=== PATIENT | female | born 1995 | race Caucasian/White ===

== ENCOUNTER 2016-06-22 09:42 | Emergency (ER) | payer OTHER ==
[~2016-06-22] VITALS: Ht 165.1 cm; Wt 42.2 kg
[~2016-06-22 09:42] MED LIST: AMBIEN (MONOGRAP5 MG PO; FLOMAX(MONOGRA0.4 MG PO; MIRALAX119 GM PO; MOTRIN 600 MG600 MG PO; NEURONTIN300 M1 PO; PERCOCET 325 MG1 TA2 PO; TRAMADOL HCL50 M1 PO; XANAX1 M1 PO
[2016-06-22 09:46] VITALS: BP 107/73
--- NOTE | 2016-06-22 10:25 | ED GI/GU/ABDOMINAL COMPLAINT ---
History of Present Illness General Chief Complaint: Abdominal Pain/Flank Pain Stated Complaint: LEFT FLANK PAIN Source: patient, old records Exam Limitations: hx limited as pt repeatedly expressed she did not want to be in the ED due to anxiety Vital Signs & Intake/Output Vital Signs & Intake/Output Vital Signs Date Time Temp Pulse Resp B/P Pulse O2 O2 Flow FiO2 Ox Delivery Rate 06/22 0946 97.0 99 20 107/73 97 Room Air Allergies Coded Allergies: No Known Allergies (02/04/16) Reconcile Medications Alprazolam (Xanax) 0.5 MG TABLET 1 TAB PO BIDP PRN ANXIETY (Reported) Gabapentin (Neurontin) 300 MG CAPSULE 1 CAP PO TID PRN pain Polyethylene Glycol 3350 (Miralax) 17 GRAM/DOSE POWDER 17 GM PO DAILY constipation mix with water, juice, soda, coffee or tea, use until stools soft and regular Tramadol HCl 50 MG TABLET 1 TAB PO BIDP PRN PAIN Triage Note: RIGHT FLANK PAIN SINCE YESTERDAY MORNING, PT STATES HER URINE STREAM IS WEAK AND IT FEELS LIKE IT'S BLOCKED. PT HAS HX OF KIDNEY STONES Triage Nurses Notes Reviewed? yes ? n Is pt currently ? No Onset: Abrupt Duration: hour(s):, continues in ED Quality/Severity: severe Prior Abdominal Problems: similar symptoms (due to renal colic) HPI: Patient presents for evaluation of right flank pain that began early yesterday morning. It is a sharp stabbing pain that seems to feel better with hunching forward. It gets worse with movement. Radiates to the right lower abdomen. Past History Travel History Traveled to [place] past 21 day No Medical History Any Pertinent Medical History? 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 No Review of Systems Review of Systems Constitutional: Reports: no symptoms. EENTM: Reports: no symptoms. Respiratory: Reports: no symptoms. Cardiovascular: Reports: no symptoms. GI: Reports: no symptoms. Genitourinary: Reports: no symptoms. Musculoskeletal: Reports: back pain. Skin: Reports: no symptoms. Neurological/Psychological: Reports: no symptoms. Hematologic/Endocrine: Reports: no symptoms. Immunologic/Allergic: Reports: no symptoms. All Other Systems: Reviewed and Negative Physical Exam Physical Exam Gastrointestinal: see below Comments: gen: wn, wd, no acute resp distress head: nc/at eyes: normal inspection ears: normal inspection nose: normal inspection throat/mouth: moist mucosa neck: supple, from, no goiter heart: rrr, no mrg lungs: cta bilaterally with normal air entry chest: nt abd: soft, nd, normal bowel sounds, mild right sided tenderness back: normal range of motion, right cvat ext: normal range of motion, no cyanosis, clubbing or edema skin: warm and dry circulatory: normal radial pulses neuro: cn 2-12 grossly intact, speech clear psych: calm, cooperative, no apparent delusion, hallucinations or pressured speech Core Measures ACS in differential dx? No Severe Sepsis Present: No Septic Shock Present: No Progress Differential Diagnosis: biliary colic, cholecystitis, hepatitis, kidney stone, UTI/pyelo Plan of Care: Orders Procedure Date/time Status URINE 06/22 1025 Active URINALYSIS 06/22 1025 Active CBC WITHOUT DIFFERENTIAL 06/22 1025 Complete BASIC METABOLIC PANEL 06/[address] ABD & PELVIS W/O IV CONTRAS 06/22 1025 Active Laboratory Tests 06/22/16 1036: Anion Gap 9, Estimated GFR > 60, BUN/Creatinine Ratio 18.3, Glucose 145 H, Calcium 9.6, CBC w Diff NO MAN DIFF REQ, RBC 4.27, MCV 83.6, MCH 27.8, RDW 14.7 H, MPV 9.5, Gran % 84.2 H, Lymphocytes % 10.9 L, Monocytes % 3.1, Eosinophils % 1.6, Basophils % 0.2, Absolute Granulocytes 8.3 H, Absolute Lymphocytes 1.1 L, Absolute Monocytes 0.3, Absolute Eosinophils 0.2, Absolute Basophils 0, PUBS MCHC 33.3 Initial ED EKG: none Comments: 06/22/2016 10:54:26 AM (abruptly left the emergency department. I tracked her down in the emergency department parking lot. Her father came to the emergency department at her request and she was found at his car. She states she can no longer stay in the emergency department due to severe anxiety. I explained to her the need for an evaluation to rule out considerations such as renal colic ( ureteral obstruction, infected kidney stone, sepsis, ), biliary disease, liver disease. He is alert and oriented to person place time and current events. I feel she is capable medical decision making. She repeatedly declined medication for anxiety and refused to return to the emergency department. She will be discharged AGAINST MEDICAL ADVICE. 06/22/2016 11:42:13 AM patient returned to the emergency department and was medicated with Ativan in an attempt to settle her anxiety and to allow a full evaluation here in the emergency department. However the patient just left the emergency department again. Her father is aware. I've asked that he bring her back or convince her to return if there is any worsening of her condition. Departure Departure Disposition: LEFT AGAINST MEDICAL ADVICE Condition: Stable Clinical Impression Primary Impression: Flank pain Referrals: FLORENTINO MCKEON,ZENA Gong (PCP/Family) Additional Instructions: Your leaving AGAINST MEDICAL ADVICE. Your evaluation is not complete at this time. You could potentially have a life-threatening medical condition that has gone untreated. Please follow-up with your primary care doctor as soon as possible for reevaluation and return to the emergency department immediately if any concerns or sudden worsening. Departure Forms: Customer Survey General Discharge Information
[2016-06-22 10:47] LABS: ABSOLUTE BASOPHIL COUNT 0 /CUMM (0.0-0.2); ABSOLUTE EOSINOPHIL COUNT 0.2 /CUMM (0.0-0.7); ABSOLUTE GRANULOCYTE CT 8.3 /CUMM (1.4-6.5); ABSOLUTE LYMPH COUNT 1.1 /CUMM (1.2-3.4); ABSOLUTE MONOCYTE COUNT 0.3 /CUMM (0.10-0.60); BASOPHIL % 0.2 % (0.0-2.0); EOSINOPHIL % 1.6 % (0-5); HEMATOCRIT 35.7 % (37-47); MEAN CORPUSCULAR HGB 27.8 PG (27.0-31.0); MEAN CORPUSCULAR HGB CONC 33.3 G/DL (33.0-37.0); MEAN CORPUSCULAR VOLUME 83.6 FL (81.0-99.0); MEAN PLATELET VOLUME 9.5 FL (7.4-10.4); PLATELET COUNT 248 /CUMM (130-400); RBC DISTRIBUTION WIDTH 14.7 % (11.5-14.5); RED BLOOD CELL CT 4.27 /CUMM (4.20-5.40); WHITE BLOOD CELL COUNT 9.8 /CUMM (4.8-10.8)
[2016-06-22 11:18] LABS: GRANULOCYTE % 84.2 % (42.2-75.2)
== END 2016-06-22 12:35 | disposition left against medical advice (07) ==
LOC: ERH 09:42
PROVIDERS: Emergency Medicine
DX: R10.9 Unspecified abdominal pain (principal)
CPT/HCPCS: 81025; 96374; 96375; J1885; J2405

== ENCOUNTER 2016-09-20 13:57 | Emergency (ER) | payer OTHER ==
[~2016-09-20] VITALS: Ht 152.4 cm; Wt 40.8 kg
--- NOTE | 2016-09-20 14:07 | ED PSYCHIATRIC COMPLAINT ---
History of Present Illness General Chief Complaint: ETOH/Drug Related Complaint Stated Complaint: "PER EMS ?OVERDOSE" Source: patient, EMS Exam Limitations: no limitations Vital Signs & Intake/Output Vital Signs & Intake/Output Vital Signs Date Time Temp Pulse Resp B/P B/P Pulse O2 O2 Flow FiO2 Mean Ox Delivery Rate 09/20 1410 97.8 132 18 142/82 99 Room Air ED Intake and Output 09/21 0000 09/20 1200 Intake Total 20 Output Total Balance 20 Intake, Oral 20 Patient 89 lb 15.99 oz Weight Weight Reported by Patient Measurement Method Allergies Coded Allergies: simethicone (Intermediate, RASH 09/20/16) nut - unspecified (Mild, MOUTH ITCHES 09/20/16) lactose (UNKNOWN 09/20/16) Reconcile Medications Alprazolam (Xanax) 1 MG TABLET 1 TAB PO BIDP PRN ANXIETY (Reported) Buprenorphine HCl/Naloxone HCl (Suboxone 8 MG-2 MG Sl Film) 8 MG-2 MG FILM 1 STR SL DAILY UNKNOWN (Reported) Doxepin HCl 50 MG CAPSULE 2 CAP PO QPM SLEEP (Reported) Gabapentin (Neurontin) 300 MG CAPSULE 1 CAP PO TID PRN pain Triage Nurses Notes Reviewed? yes Onset: Abrupt Duration: better Timing: single episode today Severity: severe Severity Numbers: 10 HPI: Patient's 21-year-old female with past medical history of of polysubstance abuse ,ANXIETY who presents emergency room and which EMS states that they received a phone call in which the patient was noted to be IN HER EMPLOYMENT [facility] for an extended period of time in which the employees broke down the doorway in which patient was unresponsive. EMS arrived and noted patient to be concerned of intoxication of opiates where she was mildly incoherent where they did not treat patient with any Narcan in which patient was brought in by ambulance for evaluation. EMS states that there was needle's around the patient and fresh track fall Patient states that she took multiple doses today of oxycodone and she used IV heroin over the weekend Patient currently is receiving outpatient therapy for her polysubstance abuse Patient denies any alcohol use because of a previous DUI. Denies any homicidal or suicidal ideation. Patient was offered detoxification however declines (NEWTON RAMOS) Past History Travel History Traveled to [place] past 21 day No Medical History Any Pertinent Medical History? 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 No (NEWTON RAMOS) Review of Systems Review of Systems Constitutional: Reports: no symptoms. EENTM: Reports: no symptoms. Respiratory: Reports: no symptoms. Cardiovascular: Reports: no symptoms. GI: Reports: no symptoms. Genitourinary: Reports: no symptoms. Musculoskeletal: Reports: no symptoms. Skin: Reports: no symptoms. Neurological/Psychological: Reports: see HPI. Hematologic/Endocrine: Reports: no symptoms. Immunologic/Allergic: Reports: no symptoms. All Other Systems: Reviewed and Negative (NEWTON RAMOS) Physical Exam Physical Exam General Appearance: no apparent distress, alert Neurological/Psychiatric: no motor/sensory deficits Comments: Well-developed well-nourished person in no acute distress HEENT: Normal EENT exam, pinpoint pupils extraocular motion intact, no nystagmus. Pupils equally round and reactive to light and accommodation. Nose is atraumatic. External auditory canal and Tympanic membranes clear. Pharynx normal. No swelling or edema. Neck: Supple, no lymphadenopathy, normal range of motion without pain or tenderness Back: Nontender, no CVA tenderness. Cardiovascular: Regular rate and rhythms no murmurs rubs or gallops, normal JVP Respiratory: Chest nontender. No respiratory distress.breath sounds clear to auscultation bilaterally Abdomen: Soft, nontender nondistended, no appreciable organomegaly. Normal bowel sounds. No ascites Extremity: No edema, no calf tenderness to palpation, normal and equal pulses. Neuro: Alert oriented x3, motor sensory normal, cranial nerves II through XII grossly intact. Skin: No appreciable rash on exposed skin, skin is warm and dry. Psych: Mood and affect is normal, memory and judgment is normal. SAD PERSONS Done? patient not suicidal (NEWTON RAMOS) Progress Differential Diagnosis: drug intoxication, drug overdose, drug withdrawal, electrolyte abnormality, encephalitis, hypoglycemia, hypothyroidism, IC hem/mass /tumor, meningitis Plan of Care: Orders Procedure Date/time Status Patient Safety Monitor 09/20 1416 Complete HUMAN BETA HCG SCREEN 09/20 1402 Complete ETHANOL 09/20 140 Complete COMPREHENSIVE METABOLIC PANEL 09/20 140 Complete CBC WITHOUT DIFFERENTIAL 09/20 1401 Complete Laboratory Tests 09/20/16 1427: Anion Gap 12, Estimated GFR > 60, BUN/Creatinine Ratio 10.0, Glucose 134 H, Calcium 9.2, Total Bilirubin 0.3, AST 28, ALT 24, Alkaline Phosphatase 84, Total Protein 7.3, Albumin 4.2, Globulin 3.1, Albumin/Globulin Ratio 1.4, Total Beta HCG NEGATIVE, CBC w Diff NO MAN DIFF REQ, RBC 4.47, MCV 87.3, MCH 28.3, RDW 15.8 H, MPV 8.1, Gran % 64.0, Lymphocytes % 31.4, Monocytes % 2.3, Eosinophils % 2.2 , Basophils % 0.1, Absolute Granulocytes 9.3 H, Absolute Lymphocytes 4.6 H, Absolute Monocytes 0.3, Absolute Eosinophils 0.3, Absolute Basophils 0, PUBS MCHC 32.4 L, Serum Alcohol < 10.0 09/20/16 140: Methadone Screen Cancelled, Barbiturate Screen Cancelled, Ur Phencyclidine Scrn Cancelled, Amphetamines Screen Cancelled, U Benzodiazepines Scrn Cancelled, Urine Cocaine Screen Cancelled, Urine Cannabis Screen Cancelled Patient denies any suicide or homicidal ideation No concerns of auditory or visual hallucinations Denies any inpatient detoxification request when offered FATHER IS AT BEDSIDE Patient's blood work was unremarkable patient has negative and no alcohol on board. Recent was in the emergency room for 3 hours noted to have no respiratory distress or respiratory concerns. Patient tried to obtain urine drug screen however she was unable to urinate and which due to have past medical history the patient most likely overdosed from opiates where she did not receive Narcan prior to arrival and patient has been improved from her symptoms. I discussed with patient and stressed the importance to not use this medication as detrimental effects can be considered when using this drug. Patient states that her father will most likely be having patient admitted to inpatient detox facility patient has follow-up appointment with [facility] Sunday Upon discharge patient looks well no apparent distress and will comply or discharge instructions and had no questions (MACKENZIE ELLIS,NEWTON) Departure Departure Disposition: HOME OR SELF CARE Condition: Stable Clinical Impression Primary Impression: Opiate overdose Referrals: FLORENTINO MCKEON,ZENA Gong (PCP/Family) Additional Instructions: As discussed please discontinue the use of opiates. Follow-up tomorrow WITH IOP. If symptoms worsen return to emergency room Departure Forms: Customer Survey General Discharge Information (NEWTON RAMOS) PA/DIRECTOR OF RETAIL MERCHANDISING Co-Sign Statement Statement: ED Attending supervision documentation- [] I saw and evaluated the patient. I have also reviewed all the pertinent lab results and diagnostic results. I agree with the findings and the plan of care as documented in the PA's/DIRECTOR OF RETAIL MERCHANDISING's documentation. [X] I have reviewed the ED Record and agree with the PA's/DIRECTOR OF RETAIL MERCHANDISING's documentation. [] Additions or exceptions (if any) to the PAs/DIRECTOR OF RETAIL MERCHANDISING's note and plan are summarized below: [] (KATHLEEN MCKEON,NILSON)
[2016-09-20 14:10] VITALS: BP 142/82
[2016-09-20 14:35] LABS: ABSOLUTE BASOPHIL COUNT 0 /CUMM (0.0-0.2); ABSOLUTE EOSINOPHIL COUNT 0.3 /CUMM (0.0-0.7); ABSOLUTE GRANULOCYTE CT 9.3 /CUMM (1.4-6.5); ABSOLUTE LYMPH COUNT 4.6 /CUMM (1.2-3.4); ABSOLUTE MONOCYTE COUNT 0.3 /CUMM (0.10-0.60); BASOPHIL % 0.1 % (0.0-2.0); EOSINOPHIL % 2.2 % (0-5); MEAN CORPUSCULAR HGB 28.3 PG (27.0-31.0); MEAN CORPUSCULAR HGB CONC 32.4 G/DL (33.0-37.0); MEAN CORPUSCULAR VOLUME 87.3 FL (81.0-99.0); MEAN PLATELET VOLUME 8.1 FL (7.4-10.4); PLATELET COUNT 296 /CUMM (130-400); RBC DISTRIBUTION WIDTH 15.8 % (11.5-14.5); RED BLOOD CELL CT 4.47 /CUMM (4.20-5.40); WHITE BLOOD CELL COUNT 14.5 /CUMM (4.8-10.8)
[2016-09-20] MEDS ORDERED: SUBOXONE 8 MG-1 EACH SL (14:54)
[2016-09-20] MEDS ORDERED: DOXEPIN HCL50 MG PO (14:54)
== END 2016-09-20 17:45 ==
LOC: ERH 13:57
PROVIDERS: Physician Assistant
DX: T40.601A Poisoning by unspecified narcotics, accidental (unintentional), initial encounter (principal)
CPT/HCPCS: 80307; G0480

== ENCOUNTER 2016-09-21 13:48 | Inpatient (IN) | payer OTHER ==
[~2016-09-21] VITALS: Ht 165.1 cm; Wt 40.8 kg
[~2016-09-21 13:48] MED LIST changes: +DOXEPIN HCL50 MG PO; +SUBOXONE 8 MG-1 EACH SL
--- NOTE | 2016-09-21 13:56 | ED PSYCHIATRIC COMPLAINT ---
History of Present Illness General Chief Complaint: ETOH/Drug Related Complaint Stated Complaint: BIBA UNRESPONSIVE Source: patient Exam Limitations: no limitations Vital Signs & Intake/Output Vital Signs & Intake/Output Vital Signs Date Time Temp Pulse Resp B/P B/P Pulse O2 O2 Flow FiO2 Mean Ox Delivery Rate 09/21 2308 97.4 109 18 117/74 09/21 2216 97.4 109 117/74 09/21 1930 97.6 103 18 106/77 95 09/21 1609 97.7 130 20 161/86 09/21 1608 97.7 130 20 161/86 94 Room Air 09/21 1401 Room Air Room Air 09/21 1356 98.4 116 15 124/92 99 Room Air Room Air ED Intake and Output 09/22 0000 09/21 1200 Intake Total 0 Output Total Balance 0 Intake, Oral 0 Patient 89 lb 15.99 oz Weight Weight Reported by Patient Measurement Method Allergies Coded Allergies: simethicone (Intermediate, RASH 09/21/16) nut - unspecified (Mild, MOUTH ITCHES 09/21/16) lactose (UNKNOWN 09/21/16) Reconcile Medications Alprazolam (Xanax) 1 MG TABLET 1 TAB PO BIDP PRN ANXIETY (Reported) Buprenorphine HCl/Naloxone HCl (Suboxone 8 MG-2 MG Sl Film) 8 MG-2 MG FILM 1 STR SL DAILY UNKNOWN (Reported) Doxepin HCl 50 MG CAPSULE 2 CAP PO QPM SLEEP (Reported) Gabapentin (Neurontin) 300 MG CAPSULE 1 CAP PO TID PRN pain Triage Nurses Notes Reviewed? yes Onset: Abrupt Duration: better Timing: single episode today Severity: severe Severity Numbers: 10 HPI: Patient is a 21-year-old female with past medical history of polysubstance abuse who presents emergency room for concerns of overdose on heroin today in which it is noted through EMS that mother had found the patient on the floor unconscious and which the mother administered 2 mg of Narcan spray patient immediately came to and was conscious alert and oriented. Patient was evaluated yesterday for a similar event by me in which patient was noted to be at work found unconscious due to significant opiate use however no Narcan was administered. Patient states that she used because she had symptoms of "dope sickness" where she found 1 bag of heroin where she used IV today. Patient states the parents are still trying to get patient into inpatient detoxification program. Patient denies any homicidal or suicidal ideation denies any alcohol use. Patient currently states that she has denies abdominal pain due to her concerns of constipation however bowel movement was noted today. Denies any current nausea vomiting patient can tolerate by mouth (NEWTON RAMOS) Past History Travel History Traveled to [place] past 21 day No Medical History Any Pertinent Medical History? 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 No (NEWTON RAMOS) Review of Systems Review of Systems Constitutional: Reports: no symptoms. EENTM: Reports: no symptoms. Respiratory: Reports: no symptoms. Cardiovascular: Reports: no symptoms. GI: Reports: see HPI, abdominal pain. Genitourinary: Reports: no symptoms. Musculoskeletal: Reports: no symptoms. Skin: Reports: no symptoms. Neurological/Psychological: Reports: see HPI. Hematologic/Endocrine: Reports: no symptoms. Immunologic/Allergic: Reports: no symptoms. All Other Systems: Reviewed and Negative (NEWTON RAMOS) Physical Exam Physical Exam General Appearance: no apparent distress, alert, comfortable Neurological/Psychiatric: no motor/sensory deficits, awake, calm Comments: Well-developed well-nourished person in no acute distress HEENT: Normal EENT exam, extraocular motion intact, no nystagmus. Pupils equally round and reactive to light and accommodation. Nose is atraumatic. External auditory canal and Tympanic membranes clear. Pharynx normal. No swelling or edema. Neck: Supple, no lymphadenopathy, normal range of motion without pain or tenderness Back: Nontender, no CVA tenderness. Cardiovascular: Regular rate and rhythms no murmurs rubs or gallops, normal JVP Respiratory: Chest nontender. No respiratory distress.breath sounds clear to auscultation bilaterally Abdomen: Soft, nontender nondistended, no appreciable organomegaly. Normal bowel sounds. No ascites Extremity: No edema, no calf tenderness to palpation, normal and equal pulses. Neuro: Alert oriented x3, motor sensory normal, cranial nerves II through XII grossly intact. Skin: No appreciable rash on exposed skin, skin is warm and dry. Psych: Mood and affect is normal, memory and judgment is normal. SAD PERSONS Done? patient not suicidal (MACKENZIE ELLIS,NEWTON) Progress Differential Diagnosis: drug intoxication, drug overdose, drug withdrawal, electrolyte abnormality, encephalitis, hypoglycemia, hypothyroidism, IC hem/mass /tumor, meningitis Plan of Care: Orders Procedure Date/time Status Regular Diet 09/22 B Active Diet Message 09/22 UNK Active Inpt Psych Teach/Educate 09/21 2316 Active Inpt Psych Auricular Acupunctu 09/21 2316 Active NUTRITIONAL CONSULT 09/21 2253 Active Teach/Educate 09/21 2242 Active Pain Treatment and Response 09/21 2242 Active Nutritional Intake, Monitor 09/21 2242 Active Patient Care Conference 09/21 2242 Active Patient Data - inpatient psych 09/21 2202 Active Admit to inpatient psych 09/21 2202 Active Admit to inpatient psych 09/22 2019 Active Continuous Observation Monitor 09/21 1456 Complete ED CRISIS PSYCH CONSULT 09/21 1456 Active THYROID STIMULATING HORMONE 09/21 1418 Complete THYROXINE 09/21 1418 Complete FREE T4 09/21 1418 Complete FOLIC ACID 09/21 1418 Complete VITAMIN B12 09/21 1418 Complete URINE DRUG SCREEN FOR ER ONLY 09/21 1355 Complete HUMAN BETA HCG SCREEN 09/21 1355 Complete ETHANOL 09/21 1355 Complete COMPREHENSIVE METABOLIC PANEL 09/21 1355 Complete CBC WITHOUT DIFFERENTIAL 09/21 1355 Complete EKG 09/21 1355 Active Lab Add-on Test 09/21 UNK Active Vital Signs 09/21 UNK Active Nursing Misc 09/21 UNK Active Activity/Ambulation 09/21 UNK Active Current Medications Sig/Nathalie Start time Last Medication Dose Stop Time Status Admin Clonidine 0.1 MG Q6P PRN 09/21 2199 AC 09/21 (Catapres) 2308 Ibuprofen 600 MG Q4P PRN 09/21 2199 AC 09/21 (Motrin) 230 Ondansetron HCl 4 MG Q6P PRN 09/21 2199 AC (Zofran) Laboratory Tests 09/21/16 1712: Urine Opiates Screen > 4000.00 H, Methadone Screen 51, Barbiturate Screen < 60, Ur Phencyclidine Scrn < 6.00, Amphetamines Screen < 100, U Benzodiazepines Scrn 227 H, Urine Cocaine Screen 98, Urine Cannabis Screen 12.80 06/01/17 1418: Anion Gap 9, Estimated GFR > 60, BUN/Creatinine Ratio 18.3, Glucose 124 H, Calcium 8.8, Total Bilirubin 0.5, AST 32, ALT 20, Alkaline Phosphatase 76, Total Protein 6.8, Albumin 3.8, Globulin 3.0, Albumin/Globulin Ratio 1.3, Vitamin B12 725, Folate 17.2, TSH 0.333, Free T4 1.15, Thyroxine (T4) 9.7, Total Beta HCG NEGATIVE, CBC w Diff NO MAN DIFF REQ, RBC 4.33, MCV 85.4, MCH 28.4, RDW 15.4 H, MPV 8.1, Gran % 86.6 H, Lymphocytes % 6.4 L, Monocytes % 7.0, Eosinophils % 0, Basophils % 0 L, Absolute Granulocytes 13.4 H, Absolute Lymphocytes 1.0 L, Absolute Monocytes 1.1 H, Absolute Eosinophils 0, Absolute Basophils 0, PUBS MCHC 33.2, Serum Alcohol < 10.0 Patient has considerable concern of 2 consecutive days of opiate overdose Patient on initial examination was in no apparent distress however patient while in the emergency room started complaining of generalized abdominal pain where patient has consideration of constipation. Abdominal x-ray was unremarkable for obstruction. Patient was administered medications for nausea pain and BOWEL promotion while in the emergency room. Patient was ordered a monitor for concerns of elopement risk and opiate overdose and patient was evaluated by crisis management who discussed with me the patient will be admitted to Inpatient Psychiatry for concerns of anxiety. Discussed disposition plan with parents who agree and has no questions (MACKENZIE ELLIS,NEWTON) Diagnostic Imaging: Viewed by Me: Radiology Read. Radiology Impression: SEE COMMENTS Comments: PATIENT: LIN CERRATO PRESENT AGE: 21 PATIENT ACCOUNT NO: [id number] : 94 LOCATION: [facility] ORDERING PHYSICIAN: NEWTON ELLIS SERVICE DATE: 09/21/16-7626 EXAM TYPE: RAD - [id number] VIEW EXAMINATION: XR ABDOMEN CLINICAL INDICATION: Heroin induced constipation. Rule out small bowel obstruction. COMPARISON: CT abdomen pelvis dated 02/04/2016 and it abdominal radiograph dated 02/13/2016 TECHNIQUE: AP view of the abdomen. FINDINGS: There is a nondilated bowel gas pattern. A moderate volume of stool is present throughout the ascending and transverse colon. No gross evidence of pneumoperitoneum. Lung bases are clear. No pathologic calcification. A navel piercing is present. Osseous structures are unremarkable. IMPRESSION: Moderate stool volume. No obstruction. (NEWTON RAMOS) Departure Departure Disposition: STILL A PATIENT Condition: Critical Clinical Impression Primary Impression: Anxiety Secondary Impressions: Opiate dependence Referrals: FLORENTINO MCKEON,ZENA Gong (PCP/Family) Additional Instructions: DISCUSSED, ONCE YOU ARE DISCHARGED FROM THE ER, PLEASE GO TO [facility] TO BE ADMITTED FOR YOUR SYMPTOMS IF SYMPTOMS WORSEN, RETURN TO THE ER. Departure Forms: Customer Survey General Discharge Information Psych Admission Note Psychiatric Admission: I have seen and evaluated LIN CERRATO. I have also reviewed all the pertinent lab results and diagnostic results. LIN CERRATO will be admitted to our inpatient Psychiatric unit for treatment and care. (NEWTON RAMOS) PA/HEARING SCREENER Co-Sign Statement Statement: ED Attending supervision documentation- [] I saw and evaluated the patient. I have also reviewed all the pertinent lab results and diagnostic results. I agree with the findings and the plan of care as documented in the PA's/HEARING SCREENER's documentation. [x] I have reviewed the ED Record and agree with the PA's/HEARING SCREENER's documentation. [] Additions or exceptions (if any) to the PAs/HEARING SCREENER's note and plan are summarized below: [] (HEMANT SINGH DO) Critical Care Note Critical Care Note Critical Care Time: 30-74 min (NEWTON RAMOS)
--- NOTE | 2016-09-21 14:01 | NUR ---
PT BIBA FROM HOME S/P OVERDOSE ON 1 BAG OF HEROIN TODAY. PT HAS HISTORY OF IV DRUG ABUSE, SEEN HERE YESTERDAY FOR OVERDOSE WELL. PT DENIES SI/HI, DOES NOT WANT DETOX "I'M CURRENTLY WAITING TO GET INTO A DETOX FACILITY RIGHT NOW." PT CALM AND COOPERATIVE, A/O X 3 ON ARRIVAL. PT'S MOTHER FOUND PT UNRESPONSIVE AND GAVE 2MG INTRANASAL NARCAN APPROX 1250.
--- NOTE | 2016-09-21 14:01 | NUR ---
PER CALEB MANN, PT DOES NOT NEED TO BE CHANGED INTO SCRUBS.
[2016-09-21 14:33] LABS: ABSOLUTE BASOPHIL COUNT 0 /CUMM (0.0-0.2); ABSOLUTE EOSINOPHIL COUNT 0 /CUMM (0.0-0.7); ABSOLUTE GRANULOCYTE CT 13.4 /CUMM (1.4-6.5); ABSOLUTE MONOCYTE COUNT 1.1 /CUMM (0.10-0.60); BASOPHIL % 0 % (0.0-2.0); EOSINOPHIL % 0 % (0-5); MEAN CORPUSCULAR HGB CONC 33.2 G/DL (33.0-37.0); MEAN PLATELET VOLUME 8.1 FL (7.4-10.4); PLATELET COUNT 283 /CUMM (130-400); RBC DISTRIBUTION WIDTH 15.4 % (11.5-14.5); RED BLOOD CELL CT 4.33 /CUMM (4.20-5.40); WHITE BLOOD CELL COUNT 15.4 /CUMM (4.8-10.8)
[2016-09-21 14:41] LABS: MEAN CORPUSCULAR HGB 28.4 PG (27.0-31.0); MEAN CORPUSCULAR VOLUME 85.4 FL (81.0-99.0)
--- NOTE | 2016-09-21 14:50 | NUR ---
PROVIDER AT BEDSIDE TO SPEAK WITH PARENTS ABOUT POC.
[2016-09-21 14:54] LABS: GRANULOCYTE % 86.6 % (42.2-75.2)
--- NOTE | 2016-09-21 15:01 | RADIOLOGY REPORT ---
EXAMINATION: XR ABDOMEN CLINICAL INDICATION: Heroin induced constipation. Rule out small bowel obstruction. COMPARISON: CT abdomen pelvis dated 02/04/2016 and it abdominal radiograph dated 02/13/2016 TECHNIQUE: AP view of the abdomen. FINDINGS: There is a nondilated bowel gas pattern. A moderate volume of stool is present throughout the ascending and transverse colon. No gross evidence of pneumoperitoneum. Lung bases are clear. No pathologic calcification. A navel piercing is present. Osseous structures are unremarkable. IMPRESSION: Moderate stool volume. No obstruction.
--- NOTE | 2016-09-21 15:01 | NUR ---
PT REFUSING IBUPROFEN, PHARM CALLED FOR GOLYTELY AND CATAPRES.
--- NOTE | 2016-09-21 15:04 | NUR ---
PT SCREAMING ABOUT STOMACH PAIN. PT OFFERED IBUPROFEN BUT REFUSED FOR THE PAIN. SECURITY CALLED FOR WANDING.
--- NOTE | 2016-09-21 15:15 | NUR ---
PT AGITATED AND COMPLAINING THAT HER STOMACH HURTS, STILL REFUSING TO TAKE IBUPROFEN. PT WANDED BY SECURITY AND CHANGED INTO SCRUBS PER POLICY. PT'S MOTHER AND FATHER GIVEN ALL VALUABLES AND BELONGINGS TO TAKE HOME. PT VERY UPSET AND AGITATED THAT SHE IS FORCED TO TAKE HER SOCKS OFF, PT INFORMED THAT IT'S POLICY THAT SHE NEEDS TO TAKE HER SOCKS OFF. PT TOOK SOCKS OFF BUT IS REQUESTING A NEW NURSE. CHARGE AWARE AND PT MOVED TO ROOM 13, REPORT GIVEN TO MARCO ANTONIO CANALES.
--- NOTE | 2016-09-21 15:24 | NUR ---
PT SCREAMING AND CRYING OUT IN PAIN STATING SHE HAS GI ISSUES AND WANTS NARCOTIC MEDS FOR PAIN. EDUCATED MULTIPLE TIMES BY MULTIPLE EMPLOYEES THAT NARCOTICS WILL NOT BE GIVEN DUE TO NATURE OF VISIT TO ED TODAY AND THAT OPIATE USE AFTER OVERDOSE CAN BE LIFE THREATENING
--- NOTE | 2016-09-21 16:10 | NUR ---
PT MEDICATED PER EMAR. GOLYTELY GIVEN TO PT WITH CUP, INSTRUCTED TO DRINK TOLERATED UP TO 8OZ/10MIN PER PHARMACY. FATHER AT BEDSIDE ASSISTING PT WITH DRINKING. PO FLUIDS PROVIDED. PT VERY ANXIOUS, C/O GI SYMPTOMS AND ANXIETY. PT AWARE OF NEED FOR URINE SAMPLE, CUP AND LABELS GIVEN TO SITTERS. PT ADVISED THAT IF SHE IS UNABLE TO PROVIDE A SAMPLE, A STRAIGHT CATH WILL LIKELY BE ORDERED, VERBALIZED UNDERSTANDING. SITTERS IN ATTENDANCE.
--- NOTE | 2016-09-21 16:33 | NUR ---
PT RESTING ON BED, HAS HAD 2 GLASSES OF GOLYTELTY PER PARENTS AND NOW STATING SHE IS TOO NAUSEATED TO CONTINUE AT THIS TIME. PARENTS AT BEDSIDE VOICING NO CONCERNS. SITTERS AWARE TO REMIND PT TO COLLECT URINE WHEN POSSIBLE.
--- NOTE | 2016-09-21 17:19 | NUR ---
PER PA, PT AGREED TO STRAIGHT CATH FOR URINE. ONE PASS ATTEMPTED, PT C/O SEVERE DISCOMFORT AND ADAMENTLY REFUSED TO ALLOW PROCEDURE TO CONTINUE STATING SHE WOULD PROVIDE A CLEAN CATCH SAMPLE. PT WENT TO RESTROOM WITH ASSIST FROM MOTHER (AT PT REQUEST), URINE TRIO SENT AT THIS TIME. PT NOW STATES SHE WILL ACCEPT MOTRIN FOR HER BACK PAIN.
--- NOTE | 2016-09-21 17:27 | NUR ---
MEDICATED WITH MOTRIN, ICE PACKS PROVIDED, MOTHER AT BEDSIDE. CRISIS AWARE THAT URINE HAS BEEN SENT. PT RESTING WITH EYES CLOSED ON BED. GOLYTLY REMAINS AT BEDSIDE, PT IS AWARE OF PURPOSE OF MED AND INSTRUCTIONS AND DECLINES TO DRINK MORE AT THIS TIME.
--- NOTE | 2016-09-21 19:54 | ED PSYCH CRISIS CONSULTATION ---
See Addendum Crisis Consult Basic Assessment Date of Consult: 09/21/16 Responsible Person/Accompanied By: parents called police Insurance Authorization: Insurance #1: Insurance name: HEATHER IZAGUIRRE Phone number: Policy number: [id number] Group number: Authorization number: ED Provider: Patient's ED Provider: NEWTON RAMOS Primary Care Physician: Patient's PCP: ZENA GOOD MD PCP's Current Psychiatrist: PCP prescribes her xanax Chief Complaint: ETOH/Drug Related Complaint Patient's Quote: "I took some heroin and my Mom found me" Present Illness: Pt is a 21 year old female, arrived to ER due to overdose on heroin, pt reportedly used 1 bag IV and her Mother found her laying on the floor unresponsive. Pt denies this was a suicide attempt. Pt has limited insight, her demeanor is childlike, she is curled up in a ball, and avoids eye contact, she is soft spoken. Pt denies previous si attempts or self harm, pt was seen here yesterday for a similar presentation after she passed out at work in their bathroom and required the door be busted down, and was evluated inthe ER, she was discharged with a plan to find a detox bed, she was not referred to crisis. Pt reports she started using heroin at age 17 and has been using it on and off for 4 years. She has been to [facility] for detox and rehab. She was also seen in our IOP in May 2016, she reports she relapsed in June, using 4 to 5 bags daily. She is prescribed xanax her Mother holds onto it and gives it to her twice daily as needed, her PCP prescribes this medicine to her for "anxiety". Pt is also diagnosed with anorexia, and has been to [facility] for specific eating disorder behaviors. Pt poor judgement, in regards to the seriousness and risk involved. She reports poor sleep, and is constipated. Patient's Address: [address] [place] [address] Other Phone Number: Who Do You Live With? Family Family/Informants Interviewed: family are concerned for her saftey, they are afraid she is going to kill herself, by means of overdose. Allergies - Coded Allergies: simethicone (Intermediate, RASH 09/21/16) nut - unspecified (Mild, MOUTH ITCHES 09/21/16) lactose (UNKNOWN 09/21/16) Current Medications - Scheduled Medications Buprenorphine HCl/Naloxone HCl (Suboxone 8 MG-2 MG Sl Film) 8 MG-2 MG FILM 1 STR SL DAILY UNKNOWN #14 (Reported) Entered as Reported by LYNSEY HERNANDEZ on 09/20/16 1454 Doxepin HCl 50 MG CAPSULE 2 CAP PO QPM SLEEP #30 (Reported) Entered as Reported by LYNSEY HERNANDEZ on 09/20/16 1454 Scheduled PRN Medications Alprazolam (Xanax) 1 MG TABLET 1 TAB PO BIDP PRN ANXIETY (Reported) Entered as Reported by LYNSEY HERNANDEZ on 06/18/15 1249 Gabapentin (Neurontin) 300 MG CAPSULE 1 CAP PO TID PRN pain #50 CAP Prescribed by PEE MOTT MD on 02/13/16 Laboratory Results: Laboratory Tests 09/21/16 1712: Urine Opiates Screen > 4000.00 H, Methadone Screen 51, Barbiturate Screen < 60, Ur Phencyclidine Scrn < 6.00, Amphetamines Screen < 100, U Benzodiazepines Scrn 227 H, Urine Cocaine Screen 98, Urine Cannabis Screen 12.80 09/21/16 1418: Anion Gap 9, Estimated GFR > 60, BUN/Creatinine Ratio 18.3, Glucose 124 H, Calcium 8.8, Total Bilirubin 0.5, AST 32, ALT 20, Alkaline Phosphatase 76, Total Protein 6.8, Albumin 3.8, Globulin 3.0, Albumin/Globulin Ratio 1.3, Total Beta HCG NEGATIVE, CBC w Diff NO MAN DIFF REQ, RBC 4.33, MCV 85.4, MCH 28.4, RDW 15.4 H, MPV 8.1, Gran % 86.6 H, Lymphocytes % 6.4 L, Monocytes % 7.0, Eosinophils % 0, Basophils % 0 L, Absolute Granulocytes 13.4 H, Absolute Lymphocytes 1.0 L, Absolute Monocytes 1.1 H, Absolute Eosinophils 0, Absolute Basophils 0, PUBS MCHC 33.2, Serum Alcohol < 10.0 Past History Past Medical History Neurological: NONE, restless leg syndrome EENT: NONE Cardiovascular: NONE Respiratory: NONE Gastrointestinal: NONE Hepatic: NONE Renal: nephrolithiasis Musculoskeletal: NONE Psychiatric: anxiety, IV DRUG ABUSE (HEROIN) ANOREXIA Endocrine: NONE Blood Disorders: NONE Cancer(s): 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 Past Surgical History Surgical History: non-contributory Psychosocial History Strengths/Capabilities: parents are supportive, employable Psychiatric Treatment History Psych Treatment Psychiatric Treatment Yes Inpatient Treatment No Outpatient Treatment Yes Location of Treatment [facility] dual Reason for Treatment dual diagnosed Dates of Treatment may 2016 Response to Treatment unknown Diagnosis by History: Anxiety D/O anorexia opiate use d/o Substance Use/Abuse History Drug Use/Abuse 1 Substances Used/Abused Yes Substance Used/Abused Heroin First Use 17 Last Used today How much used/taken 5 bags How often daily For how long 4 years Route of use IV Drug Use/Abuse 2 Substances Used/Abused Yes Substance Used/Abused Benzodiazepines First Use 20 Last Used today How much used/taken 1mg bid How often daily For how long few years Route of use oral Substance Abuse Treatment Substance Abuse Treatment Past Substance Abuse TX Yes Inpatient Treatment Yes Outpatient Treatment Yes Location of Treatment [facility] Reason for Treatment opiates Dates of Treatment in past few years Response to Treatment unknown Current Mental Status Mental Status Orientation: Person, Place, Situation Affect: Anxious, Depressed, Flat, Inappropriate Speech: Mumbled, Soft Neuro-vegetative: Appetite Decreased, Concentration Poor, Helpless, Loss of Interest, Sleep Disturbance Appearance Appearance- Dress/Hygiene: ungroomed, dishelved Behaviors Thought Process: Irrational Thought Content: Somatic Memory: WNL Insight: Poor SI/HI Risk Assessment Past Suicidal Ideation/Attempts No Current Suicidal Ideation/Att No Past Homicidal Ideation/Att: No Current Homicidal Ideation/Attempts No Degree of Intent: Self Destructive/No Danger To: Self Gravely Disabled: Lack of Insight, Poor Judgment Risk Factors: age (under 24/over 65), high anxiety/distress, SA/MH hospitalized, substance abuse, poor impulse control Lethality Ratin PTSD Checklist PTSD Done? patient declined ED Management Sitter: Yes Restraints: No DSM5/PS Stressors/Medical Prob Diagnosis' (DSM 5, Stressors, Medical): Anxiety D/O F41.1 Opiate Use D/O F11.20 Severe Anorexia Current GAF: 27 Departure Disposition Psych Medical Clearance Date: 09/21/16 Medically Cleared at: 1800 Time Started: 1800 Time Ended: 193 Psychiatrist Consulted: Kevin MCKEON,Edward Date Disposition Established: 09/21/16 Time Disposition Established: 1951 Plan for Disposition - Modality: Inpatient Psychiatry Facility: [facility] Follow-up Appt Date: 09/21/16 Follow-Up Appt Time: 1952 Rationale for Disposition: Pt is exhibiting lack of insigth and judgement and is at risk of self harm. Dr. dutta recommedns inpatient admission. Type of IP Admission: Voluntary Referrals FLORENTINO MCKEON,ZENA Gong (PCP/Family)
--- NOTE | 2016-09-21 19:59 | IP CRISIS DIAG ASSESS PSYCH ---
Diagnostic Assessment Basic Assessment Insurance Authorization: Insurance #1: Insurance name: HEATHER IZAGUIRRE Phone number: Policy number: [id number] Group number: Authorization number: Primary Care Physician: Patient's PCP: ZENA GOOD MD PCP's Patient's Quote: "I took some heroin and my Mom found me" Present Illness: Pt is a 21 year old female, arrived to ER due to overdose on heroin, pt reportedly used 1 bag IV and her Mother found her laying on the floor unresponsive. Pt denies this was a suicide attempt. Pt has limited insight, her demeanor is childlike, she is curled up in a ball, and avoids eye contact, she is soft spoken. Pt denies previous si attempts or self harm, pt was seen here yesterday for a similar presentation after she passed out at work in their bathroom and required the door be busted down, and was evluated inthe ER, she was discharged with a plan to find a detox bed, she was not referred to crisis. Pt reports she started using heroin at age 17 and has been using it on and off for 4 years. She has been to [facility] for detox and rehab. She was also seen in our IOP in May 2016, she reports she relapsed in June, using 4 to 5 bags daily. She is prescribed xanax her Mother holds onto it and gives it to her twice daily as needed, her PCP prescribes this medicine to her for "anxiety". Pt is also diagnosed with anorexia, and has been to [place] for specific eating disorder behaviors. Pt poor judgement, in regards to the seriousness and risk involved. She reports poor sleep, and is constipated. Patient's Address: [address] [place] [address] Other Phone Number: Who Do You Live With? Family Feel Safe Where You Live? Yes Feel Safe in Your Relationship Yes Marital Status: single Do You Have Children? No Primary Language? Maltese Language(s) Spoken At Home: Maltese Family/Informants Interviewed: family are concerned for her saftey, they are afraid she is going to kill herself, by means of overdose. Allergies - Coded Allergies: simethicone (Intermediate, RASH 09/21/16) nut - unspecified (Mild, MOUTH ITCHES 09/21/16) lactose (UNKNOWN 09/21/16) Current Medications - Scheduled Medications Buprenorphine HCl/Naloxone HCl (Suboxone 8 MG-2 MG Sl Film) 8 MG-2 MG FILM 1 STR SL DAILY UNKNOWN #14 (Reported) Entered as Reported by LYNSEY HERNANDEZ on 09/20/16 1454 Doxepin HCl 50 MG CAPSULE 2 CAP PO QPM SLEEP #30 (Reported) Entered as Reported by LYNSEY HERNANDEZ on 09/20/16 1454 Scheduled PRN Medications Alprazolam (Xanax) 1 MG TABLET 1 TAB PO BIDP PRN ANXIETY (Reported) Entered as Reported by LYNSEY HERNANDEZ on 06/18/15 1249 Gabapentin (Neurontin) 300 MG CAPSULE 1 CAP PO TID PRN pain #50 CAP Prescribed by PEE MOTT MD on 02/13/16 Lab Results: Laboratory Tests 09/21/16 1712: Urine Opiates Screen > 4000.00 H, Methadone Screen 51, Barbiturate Screen < 60, Ur Phencyclidine Scrn < 6.00, Amphetamines Screen < 100, U Benzodiazepines Scrn 227 H, Urine Cocaine Screen 98, Urine Cannabis Screen 12.80 09/21/16 1418: Anion Gap 9, Estimated GFR > 60, BUN/Creatinine Ratio 18.3, Glucose 124 H, Calcium 8.8, Total Bilirubin 0.5, AST 32, ALT 20, Alkaline Phosphatase 76, Total Protein 6.8, Albumin 3.8, Globulin 3.0, Albumin/Globulin Ratio 1.3, Total Beta HCG NEGATIVE, CBC w Diff NO MAN DIFF REQ, RBC 4.33, MCV 85.4, MCH 28.4, RDW 15.4 H, MPV 8.1, Gran % 86.6 H, Lymphocytes % 6.4 L, Monocytes % 7.0, Eosinophils % 0, Basophils % 0 L, Absolute Granulocytes 13.4 H, Absolute Lymphocytes 1.0 L, Absolute Monocytes 1.1 H, Absolute Eosinophils 0, Absolute Basophils 0, PUBS MCHC 33.2, Serum Alcohol < 10.0 Toxicology Screen Completed? Yes Results: positive Symptoms of Use: Pt overdosed twice in the past 2 days Past History Past Medical History Medical History: anorexia Past Surgical History Surgical History SX FOR KIDNEY STONES DENTAL EXTRACTION Abuse/Trauma History Trauma History/Current Trauma: Denies Legal History Current Legal Status: alcohol/drug legal problm Have you ever been arrested? 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 Psychosocial History Strengths/Capabilities: parents are supportive, employable Psychiatric Treatment History Psych Treatment Psychiatric Treatment Yes Inpatient Treatment No Outpatient Treatment Yes Location of Treatment [facility] dual Reason for Treatment dual diagnosed Dates of Treatment may 2016 Response to Treatment unknown Diagnosis by History: Anxiety D/O anorexia opiate use d/o Risk Factors: age (under 24/over 65), high anxiety/distress, SA/MH hospitalized, substance abuse, poor impulse control Substance Use/Abuse History Drug Use/Abuse minimum 12mo Hx Substances Used/Abused Yes Substance Used/Abused Benzodiazepines First Use 20 Last Used today How much used/taken 1mg bid How often daily For how long few years Route of use oral Substance Abuse Treatment Substance Abuse Treatment Past Substance Abuse [place] Yes Inpatient Treatment Yes Outpatient Treatment Yes Location of Treatment [facility] Reason for Treatment opiates Dates of Treatment in past few years Response to Treatment unknown Sexual History Sexually Active No Sexual Orientation Heterosexual Use of Protection No Education History Highest Level of Education: some college Preferred Learning Style: visual, auditory, experiential Current Mental Status Mental Status Orientation: Person, Place, Situation Affect: Anxious, Depressed, Flat, Inappropriate Speech: Mumbled, Soft Neuro-vegetative: Appetite Decreased, Concentration Poor, Helpless, Loss of Interest, Sleep Disturbance Appearance Appearance- Dress/Hygiene: ungroomed, dishelved Behaviors Thought Process: Irrational Thought Content: Somatic Memory: WNL Insight: Poor SI/HI Risk Assessment - Minimum 6mo History- Past Suicidal Ideation/Attempts No Current Suicidal Ideation/Att No Past Homicidal Ideation/Att: No Current Homicidal Ideation/Attempts No Degree of Intent: Self Destructive/No Danger To: Self Gravely Disabled: Lack of Insight, Poor Judgment Risk Factors: age (under 24/over 65), high anxiety/distress, SA/MH hospitalized, substance abuse, poor impulse control Lethality Ratin Needs/Init TX Plan/Goals: Engage in inpatient milieu, remain safe, med eval, individual, group and family therapy. Address anxiety,soberiety and create recovery plan AUDIT-C Questionnaire: AUDIT-C Questionnaire: Response Value ETOH use in the past year Never 0 # drinks typical/day Doesn't Drink 0 6 or > drinks per occasion Never 0 Total 0 DSM5/PS Stressors/Medical Prob Diagnosis' (DSM 5, Stressors, Medical): Anxiety D/O F41.1 Opiate Use D/O F11.20 Severe Anorexia Current GAF: 27
--- NOTE | 2016-09-21 21:02 | NUR ---
REPORT CALLED TO [facility] ON [facility], AWAITING REGISTRATION TO PUT ADMISSION THROUGH THEN MAY BOOK TRANSPORT PER RN.
--- NOTE | 2016-09-21 21:19 | NUR ---
PEER FOUND IN PT'S CHART AT THIS TIME STATING "NEEDS HELP FOR HER DRUG PROBLEM." ORIGINAL IN LOCKBOX, 2 COPIES IN CHART TO BE SENT TO CPS. PER CRISIS AND PT/MOM PT IS A VOLUNTARY ADMISSION TO [facility]PS FOR ANXIETY.
[2016-09-21 22:16] VITALS: BP 117/74
--- NOTE | 2016-09-22 00:31 | NUR ---
PT IS A 21 YR OLD SINGLE FEMALE VOLUNTARILY ADMITTED FOR ANXIETY, DEPRESSION, OPIATE ABUSE, AND BENZODIAZEPINE ABUSE. SHE IS ANOREXIC. PT DENIES ABUSE HX. SHE HAD OD'D ON HEROIN TWICE IN THE LAST 2 DAYS. SHE IS A VEGAN. THE PATIENT DENIES SI CURRENTLY. SHE SOUNDS CHILD-LIKE ON ADMIT. THE PT DENIES CRAVING OPIATES AND BENZODIAZEPINES CURRENTLY. THE PATIENT ALSO DENIES ANY ANXIETY OR DEPRESSION. SHE HAS BEEN IN 6 REHABS IN THE PAST 4 YEARS- THIS IS HER FIRST PSYCHIATRIC HOSPITALIZATION. THE PATIENT APPEARS TO HAVE LITTLE INSIGHT WITH LIMITED MOTIVATION FOR TREATMENT AND ABSTINENCE. SHE STATES SHE HAS INSOMNIA. THE PATIENT STATES SHE IS ALLERGIC TO CHERRIES, BANANAS, NUTS, AND APPLES. SHE SAYS SHE IS LACTOSE INTOLERANT.
--- NOTE | 2016-09-22 06:54 | NUR ---
PT IS A 21 YR OLD SINGLE FEMALE VOLUNTARILY ADMITTED FOR ANXIETY, DEPRESSION, OPIATE ABUSE, ADN BENZODIAZEPINE ABUSE. SHE APPARENTLY OD'D YESTERDAY AND THE DAY BEFORE. SHE IS ANOREXIC. THE PATIENT DENIES ANY ABUSE HISTORY. SHE DENIES SI. THE PT DENIES CRAVING OPIATES AND BENZODIAZEPINES CURRENTLY. SHE ALSO DENIES ANXIETY AND DEPRESSION. THIS IS HER FIRST PSYCH ADMISSION, BUT SHE HAS BEEN TO 6 REHABS IN 4 YEARS. THE PATIENT APPEARS TO HAVE LIMITED INSIGHT WITH LIMITED MOTIVATION FOR TREATMENT AND ABSTINENCE. SHE STATES SHE IS AN INSOMNIAC, BUT APPEARED TO SLEEP WELL. THE PATIENT STATES SHE IS ALLERGIC TO NUTS, CHERRIES, APPLES, AND BANANAS. SHE IS LACTOSE INTOLERANT. THE PATIENT IS A VEGAN.
[2016-09-22 08:29] VITALS: BP 114/64
[2016-09-22 09:29] VITALS: BP 103/57
--- NOTE | 2016-09-22 10:35 | SOCIAL WORKER SOCIAL HX PSYCH ---
Social History Basic Assessment Insurance Authorization: Insurance #1: Insurance name: HEATHER Hall Evoz [facility] Phone number: Policy number: [id number] Group number: Authorization number: Curr Source of Income/Entitlements: employment Primary Care Physician: Patient's PCP: ZENA GOOD MD. PCP's Present Problem: Met with Pati to complete social history. She was walking slowly, bent over holding ehr stomach and stated she is constipated. She was complaining of not having enough medication for her withdrawal symptoms. She was guarded, irritable and stated how she wanted to "transfer to another detox program." She stated she "dislikes [place]." She wanted to sign a 3 day paper, offered her the paper after we met and advised her to review with her clinician. She denied SI/HI, no psychosis. She reports using 4-5 bags of Heroin daily and if she has the money a bundle daily. She was vague abotu her drug use and for how long - stated she was using while she attended the [place] IOP program - "I would just stop using a few days prior to the program, that is why my urines were always clean." Pati then stated she disliked the IOP because "they accused me of being high>' Pointed out to her that she was using, per her report. Pati appears to have very poor insight and judgement. She is focused on leaving inapatient at this point. INformed Pati that she will be working with her clinician and the prescriber on her goals for treatment. Despite her complaints and wanting to leave [facility], she stated she wants to go to a rehab, like [facility]. Informed her her clinician will assist in this process. Primary Language? Kazakh Language(s) Spoken At Home: Kazakh Living Situation Other Living Arrangement: relative's/guardian's rose Feel Safe Where You Are Living Yes Feel Safe in Relationships? Yes Allergies - Coded Allergies: simethicone (Intermediate, RASH 09/21/16) nut - unspecified (Mild, MOUTH ITCHES 09/21/16) apple (UNKNOWN 09/22/16) lactose (UNKNOWN 09/21/16) Uncoded Allergies: BANANAS (UNKNOWN 09/22/16) CHERRIES, (UNKNOWN 09/22/16) Current Medications - Scheduled Medications Buprenorphine HCl/Naloxone HCl (Suboxone 8 MG-2 MG Sl Film) 8 MG-2 MG FILM 1 STR SL DAILY UNKNOWN #14 (Reported) Entered as Reported by LYNSEY HERNANDEZ on 09/20/16 1454 Last Taken: At an unknown date and time Doxepin HCl 50 MG CAPSULE 2 CAP PO QPM SLEEP #30 (Reported) Entered as Reported by LYNSEY HERNANDEZ on 09/20/16 1454 Last Taken: At an unknown date and time Scheduled PRN Medications Alprazolam (Xanax) 1 MG TABLET 1 TAB PO BIDP PRN ANXIETY (Reported) Entered as Reported by LYNSEY HERNANDEZ on 06/18/15 1249 Last Taken: At an unknown date and time Gabapentin (Neurontin) 300 MG CAPSULE 1 CAP PO TID PRN pain #50 CAP Prescribed by PEE MOTT MD on 02/13/16 Last Taken: At an unknown date and time Past History Past Medical History Neurological: NONE, restless leg syndrome EENT: NONE Cardiovascular: NONE Respiratory: NONE Gastrointestinal: NONE Hepatic: NONE Renal: nephrolithiasis Musculoskeletal: NONE Psychiatric: anxiety, IV DRUG ABUSE (HEROIN) ANOREXIA Endocrine: NONE Blood Disorders: NONE Cancer(s): NONE 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 Primary Childhood Caretakers: father, mother Family Life During Childhood: "Fine" DCF Involvement? No Relationship w/Mother: Pt. stated she doesn't know her Mother's age. She stated she gets along "Fine" with her Mother. Relationship w/Father: Uncertain of her Father's age. Gets along "fine" with her Father. Per clinical from IOP intake: her Father is a scale model maker at [employer] in [place], and he owns a [employer] business. Any Sibling(s)? Yes Sibling's Gender(s)/Age(s): male Sibling 1: Relationship w/Sibling(s): Has Twin brother - gets along "fine" Relationship w/Friends: denies having any friends. Family Psych/Sub Abuse/Add Hx: Denied Number of Pregnancies: 0 Number of Miscarriages: 0 Number of Abortions: 0 Other Comments: PT guarded, irritated. Abuse/Trauma History Trauma History/Current Trauma: Denies Legal History Legal Guardian/Address/Phone: DUI - 09/2015 - drug related; next court 11/2016, 08/2017. No probation. Current Legal Status: alcohol/drug legal problm Pending Court Dates: see above. Have you ever been arrested Yes Number of Arrests: 2 Hx of Juvenile Legal Charges? No Hx of Adult Legal Charges? Yes If Yes: drug and alcohol related - DUI List/Date Most Recent Lgl Chgs: DUI Action Installer n/a Psychosocial History Primary Support System: father, mother, sibling(s) Strengths/Capabilities: parents are supportive, employable Weaknesses: drug use, chronic relapse Physical Limitations (Interventions): PT walking bent over, reports stomach pain. Last Physical: doesn't remember History of Seizures? No History of Blackouts? No ADL Limitations: PT did not want to discuss [place]/Social/Peer Relations Reports None Meaningful Activities: PT. states NONE Childhood Advent: No, "I don't care." Current Rastafari Affiliation: "No, I don't care." Is Spirituality Important to You? NO Patient's Ethnicity: (Nepali), [place] Timorese Cultural/Ethnic Issues: Pt did not report Are There Developmental Issues? No Milestones Achieved: WNL Psychiatric Treatment History Psych Treatment Inpatient Treatment No Outpatient Treatment Yes Location of Treatment [facility] dual Reason for Treatment dual diagnosed Dates of Treatment may 2016 Response to Treatment unknown Current Gre Instructor: Unknown Treatment of Prior Episodes: Poor, Pt stated she was using Heroin during [facility] program. Chronic relapse. Diagnosis: Anxiety D/O anorexia opiate use d/o Psychodynamic Issues: Poor insight and judgement, chronic relapse, per clinical from [facility], anorexia, family issues Risk Factors: age (under 24/over 65), high anxiety/distress, SA/MH hospitalized, substance abuse, poor impulse control Substance Use/Abuse History Drug Use/Abuse 1 Substance Used/Abused Benzodiazepines First Use 20 Last Used today How much used/taken 1mg bid How often daily For how long few years Route of use oral Drug Use/Abuse 2 Substance Used/Abused Heroin First Use 17yo Last Used day of admit How much used/taken 4-5 bags daily or 1 bundle daily How often daily or when had money For how long 4 years Have Had Periods of Sobriety? Yes Explain: intermittent (PT guarded) Relapse History? Yes Explain: PT states she was prescribed Benzos Have You Ever Attended AA? Yes Do You Attend AA Currently? No Do You Have a Sponsor? No Other Community Resources Used: PT hates AA/NA "It's a cult." Symptoms of Use: Pt overdosed twice in the past 2 days Substance Abuse Treatment Substance Abuse Treatment Inpatient Treatment Yes Outpatient Treatment Yes Location of Treatment [facility] Reason for Treatment opiates Dates of Treatment in past few years Response to Treatment unknown Sexual History Sexually Active No Sexual Orientation Heterosexual Use of Protection No Education History Highest Level of Education: some college Highest Grade Completed: 1 semester of college, HS College Degree/Major: N/A Preferred Learning Style: visual, auditory, experiential HX of Learning Difficulties: None reported Barriers to Learning: None reported Special Communication Needs: None reported Employment History 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 of Jobs in Last 5 Years: 2 Attendance: Normal Performance: Good Comments: PT works 2 jobs (20-35hrs per week) at [employer] and History Have You Been in The ? No Current Mental Status Problem List: 1. Opiate overdose Mental Status Orientation: Person, Place, Situation Affect: Anxious, Angry, Depressed, Flat, Inappropriate Speech: WNL Neuro-vegetative: Appetite Decreased, Concentration Poor, Energy Decreased, Helpless, Loss of Interest, Sleep Disturbance Appearance Appearance- Dress/Hygiene: ungroomed, dishelved Behaviors Thought Process: Irrational Thought Content: Somatic Memory: WNL Insight: Poor SI/HI Risk Assessment Past Suicidal Ideation/Attempts No Current Suicidal Ideation/Att No Past Homicidal Ideation/Att: No Current Homicidal Ideation/Attempts No Degree of Intent: Self Destructive/No Danger To: Self Gravely Disabled: Lack of Insight, Poor Judgment Risk Factors: Age (under 24 or over 65), High Anxiety/Distress, SA/MH Hospitalization(s), Lack of concern outcome, Poor impulse control, Substance Abuse Lethality Ratin - Conclusion and Recommendations for treatment - and discharge planning
[2016-09-22 12:13] VITALS: BP 93/52
--- NOTE | 2016-09-22 13:55 | NUR ---
Consult received, thank you for consult. Per chart, pt with "anorexia" per mother. Visited with pt this afternoon, food allergies clarified. Pt with allergy to banana, apples, cherries. Nut allergy per pt but almond milk okay. Pt reports she is vegetarian but doesn't eat eggs and is lactose intolerant and doesn't use dairy so she identifies as vegan but does eat gelatin. Discussed menu choices for pt with foods she eats at home. Menu set up for dining services to provide meals. Pt is very cachetic, hx of of "anorexia", RD did not discuss wt/wt issues. Alb WNL at 3.8, Folic acid WNL 17.2, B12 WNL 725. BM 09/17/16, constipation.
--- NOTE | 2016-09-22 13:58 | NUR ---
PT VISIBLE SOME OF THE DAY IN THE [place]. SHE ATTENDED A FEW GROUPS TODAY, AND INTERACTS WITH [facility]. IN THE [place] PT WAS IRRITABLE AT FIRST THAT SHE HAD TO BE HERE, AND THAT SHE WAS NOT GIVEN ANY MEDICATIONS FOR HER DETOX. PT ATTITUDE DID GET BETTER THE DAY PROGRESSED. SHE DID JOIN HER PEERS FOR LUNCH AND PICKED AT HER FOOD. PT DENIES THOUGHTS OF HURTING HERSELF WHEN ASKED.
--- NOTE | 2016-09-22 15:13 | SOCIAL WORKER PROG NOTE PSYCH ---
Social Work Progress Note Progress Note Met with Pati to complete social history. She was walking slowly, bent over holding ehr stomach and stated she is constipated. She was complaining of not having enough medication for her withdrawal symptoms. She was guarded, irritable and stated how she wanted to "transfer to another detox program." She stated she "dislikes [facility]." She wanted to sign a 3 day paper, offered her the paper after we met and advised her to review with her clinician. She denied SI/HI, no psychosis. She reports using 4-5 bags of Heroin daily and if she has the money a bundle daily. She was vague abotu her drug use and for how long - stated she was using while she attended the [facility] IOP program - "I would just stop using a few days prior to the program, that is why my urines were always clean." Pati then stated she disliked the IOP because "they accused me of being high>' Pointed out to her that she was using, per her report. Pati appears to have very poor insight and judgement. She is focused on leaving inapatient at this point. INformed Pati that she will be working with her clinician and the prescriber on her goals for treatment. Despite her complaints and wanting to leave [facility], she stated she wants to go to a rehab, like [facility]. Informed her her clinician will assist in this process.
[2016-09-22 16:34] VITALS: BP 101/61
--- NOTE | 2016-09-22 17:01 | CPS MD/APRN INITIAL ASSE PSYCH ---
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 Father is rig welder at "[employer]" in [place] and also operates a [employer] business. She has a twin brother living in [place] and apparently "doing well." Chief Complaint: "I took some heroin and my mom found me." Reaction to Hospitalization: ambivalent at first but signed in as a voluntary admission History of Present Illness Onset of Illness: Patient was referred to the E.D. 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 The first time, on 09/20/2016, she was brought in by EMS directly from her workplace; she had been found unresponsive in the store bathroom and drug paraphanalia (needles, heroin) were found in the trash can. She acknowledged only have snorted Percocet due to increasing anxiety (and, presumably difficulty continuing to work in that state of mind). She was evaluated by PA student/PA only (no Crisis consult requested at that time) and discharged to her father. In less than24 hours, she was brought back into the E.D. via ambulance from home following being found in the bathroom there unresponsive by her mother who administered 2mg of intranasal Narcan. While still in the E.D., patient complained bitterly of symptoms of "dope sickness" for which she pleaded/ demanded (but did not receive) opioid drugs at that time but was eventually given Motrin. Circumstances Leading to Admission: Twice within a 24 hour period immediately E BUSINESS CONSULTANT patient had been found unresponsive in a bathroom after ingesting opioid drugs. Fortunately, the second time her mother had intranasal Narcan to administer to her (?why was mother thus prepared). Problem(s) Justifying Need for Admission: rapidly escalating opioid abuse/overdosing on opiates presenting a significant and acute risk of injury/ Other HPI: Patient most recently relapsed during/after recent admission to [facility] in 05/2016 and been using 5-10 "bags" of I.V. heroin daily since 2016. While engaged in above behavior, she was trying to keep up with two jobs, "using" during the day at work in order to "keep going." Past Psychiatric History Past Diagnosis(es)- if any: --Opioid (I.V. heroin) Use Disorder; stated longest time off opioids/heroin in past 4 years was just "30-days" (and part of that only while still in a residential rehab program; but may have only recently added I.V. heroin) --R/O Unspecified Eating Disorder (Anorexia spectrum disorder) --Unspecified Anxiety Disorder (possibly related to baseline anxiety/depression with massively superimposed longtime heroin and other opioid abuse/addiction) with panic-like symptoms --has apparently been prescribed Xanax for an extending interval by her PCP but no evidence thus far of abuse of same above prescribed amount --polysubstance use disorders, including crack cocaine, benzos./alcohol, cannabis but by far her drug of choice has consistently been morphine (heroin) Past Precipitating Factors- if any: ongoing opioid abuse/addiction appears to be linked to longstanding anxiety/? depressive spectrum disorder, exacerbations in anxiety triggering return to or escalation of opioid abuse; initial exposure to oral opioids was when patient suffered painful kidney stones in 8th grade. - Include inpatient and outpatient treatment Treatment History: Apparently, patient has had very little outpatient psychiatric counseling and no psych admissions. Most of treatment to date has been related to substance use disorder, primarily heroin and other opioids (orally, snorted, I.V.) According to patient, she began regularly abusing opioids and rapidly switched over to heroin from age 17 and has been using heroin for most of the past 4 years, saying that she has had no more than "30 days" free of heroin abuse in the past 4 years; she added I.V. use at age 18. After receiving a DUI in 09/2015, patient went to inpatient at [facility] in [facility], ostensibly for "anorexia." She had some one-on-one "therapy" in 2015 but continued to use heroin. Patient went into substance use treatment at [facility] in [facility], 02/17-03/09/2016 (possibly as part of a "deal" with court related to DUI charges at that time), with referral to [facility] for again "anorexia" but disclosed on intake there that she had only feigned an "anorexia" diagnosis previously to keep her parents from learning of the extent and seriousness of her opioid (heroin) addiction problem. Therefore, she ended up in no treatment following [facility] and relapsed on heroin within a week of leaving there. Patient had initial intake at [facility] on 03/29/2016 and continued in treatment there until 06/05/2016; except for a urine (+) for morphine in first two weeks of treatmetn in [facility], urines were negative except for showing compliance with Suboxone therapy throughout, though patient said she would carefully arrange her substance abuse so that it "would not show up" in the urine tox screens there. She was discharged from [facility] 06/05/2016. Patient was given f/u appointments in OPS but apparently never followed up there. What has been happening in treatment since then is not clear to me at this time. It was said that at some point she had been in treatment with [facility]. History of Suicide Attempts or Gestures denied, including denial that her two overdoses E BUSINESS CONSULTANT were anything more than her attempts to control her increasing anxiety and "dopesickess" which can apparently be quite overwhelming to her. There had been at least two previous "blackouts" while using heroin. Substance Abuse History: (see all the above) Allergies: Coded Allergies: simethicone (Intermediate, RASH 09/21/16) nut - unspecified (Mild, MOUTH ITCHES 09/21/16) apple (UNKNOWN 09/22/16) lactose (UNKNOWN 09/21/16) Uncoded Allergies: BANANAS (UNKNOWN 09/22/16) CHERRIES, (UNKNOWN 09/22/16) Home Med List: doxepin, 100mg HS PRN DFA Xanax, 1mg 2x/day PRN anxiety gabapentin, 300mg 3x/day PRN discomfort/pain (had been prescribed Suboxone, 8/2mg daily while in treatment at the [facility] ) - Include any medical condition(s) that may - impact the patient's recovery/remission Past History Medical History Blood Transfusion Hx: No Neurological: restless leg syndrome EENT: NONE Cardiovascular: NONE Respiratory: NONE Gastrointestinal: NONE Hepatic: NONE Renal: nephrolithiasis (in 8th grade--first opioid rx) Musculoskeletal: NONE Psychiatric: anxiety, IV drug abuse (using I.V. heroin for 4 years), opioid dependence, substance abuse (crack/Marijuana/benzos/alcohol), ?anorexia spectrum vs. 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: NONE History of MRSA: No History of VRE: No History of CDIFF: No Isolation History: Standard Surgical History Surgical History: PAIN FROM KIDNEY STONES BUT REMOVAL NON-SURGICAL DENTAL EXTRACTION Psychiatric Family/Social Hx Family History Psychiatric Illness: mother said to be very nervous/anxious and on Xanax Substance Use: mother taking Xanax Suicides: unknown Social History Living Situation: (see above, under "Identifying Information") Significant Relationships (family/friends): --has "good" relationship with both parents but apparently has lied to them consistently for years --claims to be close to her twin brother who lives in [place] --appears that most of her "friends" are those she "uses" with Education: attended a small "[employer]" secondary school; some college Vocation/Occupation: 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 - #1 Recognizing dangerous situations. - #2 Coping Skills. - #3 Basic information about quitting. Status of Tobacco Cessation Counseling: #1, #2 AND #3 Completed Cessation Med Status Not Applicable (not used in 30+ days) Alcohol Screening - ETOH screen POS if BAL >=80 or Audit-C>= M4/F3 Audit-C Score from Diag Assess: 0 Blood Alcohol Level: Laboratory Tests 09/21 1418 Toxicology Serum Alcohol (<10 MG/DL) < 10.0 Alcohol Use Screening Results: Pos per Audit C &/or BAL - If ETOH counseling indicated - the following topics are required. - #1 Express concern about the patient's - drinking at unhealthy levels, include informing - of national norms for moderate drinking: - men <= 14 drinks/week, max 4 drinks/occasion - women <= 7 drinks/week, max 3 drinks/occasion - #2 Providing feedback, including linking alcohol to - negative physical effects (liver injury, hypertension) - negative emotional effects (relationship problems and - depression) - negative occupational consequences (reduced work - performance) - #3 Advising the patient to abstain from alcohol or - to drink below national norms for moderate drinking - (as listed above). Status of ETOH Use Counseling: #1, #2 AND #3 Completed. Metabolic Screening - Screen if on a Neuroleptic Medication - Metabolic screening should include: - Blood Pressure, BMI, Glucose or Hgb A1c, & a - Lipid profile from within the past 365 days. Metabolic Screening ([X]) Not Applicable, patient not on a neuroleptic. OR () Patient on a neuroleptic(s) . Enter below results for Glucose or Hemoglobin A1C, and lipid panel if obtained during the last 365 days. BMI: Blood Pressure: 106/52 Laboratory Results (If applicable): Exam and Plan Mental Status Examination Ambulation Status: without assitance but somwhat slow and unsteady Appearance: looks cachectic, sickly, downcast visage hidden behind schraggly dyed blood hair Attitude towards examiner: ambivalent Psychomotor activity: somewhat slowed at this time but had previously been hyperactive (before started on methadone) Behavior: whiney, child-like, regressed, complaining Quality of speech: soft, difficult to understand at times Affect: constricted, pained Mood: dysphoric, irritable, but denying sadness/despair Suicidal Ideation: denied Homicidal Ideation: denied Hallucinations: denied; no evidence of Paranoid/Delusional Material: no evidence of Difficulties with thought organization: somewhat slowed down but generally coherent and goal-directed Insight: nil Judgment: recently very poor and dangerous/risking extreme (even if inadvertent) self-harm Orientation: full Cognition: grossly intact; without noted specific deficits Memory Function: somewhat foggy at times but generally able to give history (though my impression was that virtually eveything she said was questionable due to her longstanding history of lying to parents, treaters and pretty much everyone) Estimate of intellectual functioning: average Assets/Strengths Patient Identified Assets/Strengths: --hard worker --organized --desire to function without drugs Impression/Plan Impression and Plan: Patient has an almost remarkably strong and long history of heroin addiction for someone so young (using regularly for past 4 years, starting a [id number]-[id number]-age, claiming no more than "30-days" of abstinence from heroin in all that time) and has apparently been carrying on with this and other polysubstance abuse without the knowledge of her parents with whom she lives (apparently, they only became aware "there is a problem" in 2015). First off, patient requires opioid detox and most likely referral to (long-term) residential rehab. There and subsequently, the issues of depressive/anxiety spectrum mood disorder(s) can be addressed, but not really until the very serious substance use disorder is under control and not exercising a significant , if not overwhelming, influence on her behavior and ideation. One particularly serious aspect of treating this patient would appear to be her longstanding history of lying to those around her (parents, treaters, employers, others), using with respect to some aspect of her extremely serious addition problems. - Include all active medical diagnosis that require tx DSM 5 Diagnosis(es): --Opioid (I.V. heroin) Use Disorder, extremely longstanding (for her age) and severe --other less prominent but multiple polysubstance use disorders, including crack cocaine, cannabis, alcohol and possibly benzodiazepines --R/O Unspecified Mood and/or Anxiety spectrum disorders --R/O Unspecified Eating Disorder (anorexia beyond that associated with severe heroin addiction) - Initial Tx Plan for Active Psych & Medical Conditions Treatment Plan: --rapid opioid/heroin detox. using tapering doses of methadone over next 3-4 days --organization of a family meeting with parents on 09/25/2016 at the latest --active pursuit of residential rehab options (the longer the better), including [facility] and [facility], ?others --attempt to manage what has apparently been a longstanding problem with sleep/ insomnia (including for the present continuing treatment with low dose doxepin at for sleep induction/continuity) - Factors that would help patient function - in a less restrictive setting. Factors: --rapid and uncomplicated detox from opioid/heroin --lack of complicating substance withdrawal sx --participation and cooperation of parents in treatment and therapeutic disposition/referral --absence of currently significant anxiety and/or depression --cooperation of patient in planning aftercare (including her being as honest as possible)
--- NOTE | 2016-09-22 18:12 | SOCIAL WORKER PROG NOTE PSYCH ---
Social Work Progress Note Progress Note 4:40pm: Dr. Brown, medical student and SW met with pt. Pt discussed her hx of substance use (with drug of choice, Heroin) as well as hx of treatment. She stated that she has attended [facility], [facility] and IOP as well as minimal tx. She reported most recently using 5-10 bags of Heroin daily with age of first use as 17 (inhaled). She reported that her use progressed to IV around approximately age 18. She identified having minimal supports as well as legal charges associated with her substance use. Pt reported different trials of medication for MH sx. She endorsed experiencing anxiety, however denied hx of depression or SI. She stated that parents and treators have questioned an eating d/o, however denies this and identifies her weight loss as due to her substance use. Pt expressed interest in entering inpt treatment for her substance use ([facility] or [facility]). Pt agreed to sign a KALIA for her father and inpt programs.
[2016-09-22 19:54] VITALS: BP 101/57
--- NOTE | 2016-09-22 21:21 | NUR ---
Pt is out in the kt little constricted, but tries to interact with her peers. Pt is compliant and cooperative during the shift. Vital signs are stable appetite is good. Will continue to monitor the pt overnight.
[2016-09-22 23:10] VITALS: BP 98/56
--- NOTE | 2016-09-22 23:53 | NUR ---
BP AND HR CHECKED IN ORDER TO ADMINISTER PRN CLONIDINE 0.1MG FOR OPIATE WITHDRAWAL. AT 2310 BP 98/56 P92. T/C TO DR. KING. REVIEWED PT STATUS AND VS RECEIVED ORDER TO ADMINISTER CLONIDINE 0.05MG PO X 1.
--- NOTE | 2016-09-23 05:34 | NUR ---
THE PATIENT WAS PUT ON A METHADONE TAPER. SHE DENIES CRAVING OPIATES OR BENZOS. SHE IS HOPING TO GET INTO [facility]. SHE APPEARED TO SLEEP WELL AFTER MELATONIN 5 MG PRN.
[2016-09-23 08:13] LABS: ABSOLUTE BASOPHIL COUNT 0 /CUMM (0.0-0.2); WHITE BLOOD CELL COUNT 12.9 /CUMM (4.8-10.8)
[2016-09-23 09:07] LABS: ABSOLUTE EOSINOPHIL COUNT 0.3 /CUMM (0.0-0.7); ABSOLUTE GRANULOCYTE CT 8.4 /CUMM (1.4-6.5); ABSOLUTE MONOCYTE COUNT 1.2 /CUMM (0.10-0.60); BASOPHIL % 0.4 % (0.0-2.0); EOSINOPHIL % 2.3 % (0-5); GRANULOCYTE % 64.9 % (42.2-75.2); MEAN CORPUSCULAR HGB 28.5 PG (27.0-31.0); MEAN CORPUSCULAR HGB CONC 33.3 G/DL (33.0-37.0); MEAN CORPUSCULAR VOLUME 85.7 FL (81.0-99.0); MEAN PLATELET VOLUME 9.2 FL (7.4-10.4); PLATELET COUNT 261 /CUMM (130-400); RBC DISTRIBUTION WIDTH 15.7 % (11.5-14.5); RED BLOOD CELL CT 3.39 /CUMM (4.20-5.40)
[2016-09-23 12:20] VITALS: BP 106/52
--- NOTE | 2016-09-23 13:10 | NUR ---
PT WAS WITHDRAWN AND ISOLATIVE IN ROOM- SLEEPING MOST OF MORNING. PT PRESENT ON THE UNIT AFTER LUNCH. PT MOOD IS STABLE WITH A CONSTRICTED AND EUTHYMIC AFFECT. PT DENIES SI AT THIS TIME, NO COMPLAINTS OFFERED. PT HAS HAD SOME INTERACTION WITH PEERS AND STAFF. NO S/S OF DETOX NOTED. VITALS ARE STABLE, APPETITE IS GOOD.
--- NOTE | 2016-09-23 14:21 | CP SOUTH PROGRESS NOTE PSYCH ---
Psych (Inpt) Progress Note Progress Note Include the following elements, when applicable: Involvement in the active treatment of the patient with behavioral observations of the patient and the patient's response to the treatment. Review of the ongoing treatment process in the context of the treatment plan. Indication of how multi-disciplinary staff members are carrying out the treatment plan. Plans for future interventions and recommendations for revision of the treatment plan. Liaison with other physicians/providers. Progress Note: Pt notes that she wants her doxepin. Does not want to take the sertraline anymore. Feels that will be ready to leave on Sunday. Denies SI or HI. Denies AVHs. Current Medications Sig/Nathalie Start time Last Medication Dose Route Stop Time Status Admin Clonidine 0.05 MG ONCE ONE 09/22 2314 DC 09/22 PO 09/22 231 2315 Clonidine 0.1 MG Q6P PRN 09/21 2200 AC 09/23 PO 1407 Doxepin HCl 50 MG 09/23 2200 AC PO Doxepin HCl 50 MG AT BEDTIME NEED.. 09/23 1230 AC PO Gabapentin 400 MG 0800,1400,0 09/22 1400 AC 09/23 PO 1407 Gabapentin 400 MG Q4H PRN 09/22 1115 AC 09/22 PO 2315 Ibuprofen 600 MG Q4P PRN 09/21 2200 AC 09/21 PO 2309 Magnesium Hydroxide 30 ML Q8H PRN 09/22 1115 AC PO Melatonin 5 MG AT BEDTIME NEED.. 09/22 2330 AC 09/22 PO 2315 Methadone HCl 5 MG 1200 09/25 1200 AC PO 09/25 1201 Methadone HCl 5 MG 0800,09/24 0800 AC PO 09/24 2000 Methadone HCl 10 MG 0800,09/23 0800 AC 09/23 PO 09/23 2000 1115 Methadone HCl 10 MG 09/22 220 CAN PO 09/22 2200 Methadone HCl 10 MG 09/22 DC 09/22 PO 09/22 2000 2125 Ondansetron HCl 4 MG Q6P PRN 09/21 2200 AC PO Sertraline HCl 25 MG 1000 09/23 1000 DC PO Laboratory Tests 09/23/16 0613: Triglycerides 57, Cholesterol 109, LDL Cholesterol, Calc 63 L, HDL Cholesterol 35 L, Cholesterol/HDL Ratio 3, CBC w Diff NO MAN DIFF REQ, RBC 3.39 L, MCV 85.7, MCH 28.5, RDW 15.7 H, MPV 9.2, Gran % 64.9, Lymphocytes % 23.3, Monocytes % 9.1, Eosinophils % 2.3, Basophils % 0.4, Absolute Granulocytes 8.4 H, Absolute Lymphocytes 3.0, Absolute Monocytes 1.2 H, Absolute Eosinophils 0.3, Absolute Basophils 0, PUBS MCHC 33.3 Laboratory Tests 09/23 09/21 0613 1712 Chemistry Sodium (137 - 145 mmol/L) 137 Triglycerides (<150 mg/dL) 57 Cholesterol (<200 MG/DL) 109 LDL Cholesterol, Calc (65 - 129 mg/dL) 63 L HDL Cholesterol (40 - 60 mg/dL) 35 L Cholesterol/HDL Ratio (0.00 - 4.23 %) 3 Hematology CBC w Diff NO MAN DIFF REQ WBC (4.8 - 10.8 /CUMM) 12.9 H RBC (4.20 - 5.40 /CUMM) 3.39 L Hgb (12.0 - 16.0 G/DL) 9.7 L Hct (37 - 47 %) 29.0 L MCV (81.0 - 99.0 FL) 85.7 MCH (27.0 - 31.0 PG) 28.5 RDW (11.5 - 14.5 %) 15.7 H Plt Count (130 - 400 /CUMM) 261 MPV (7.4 - 10.4 FL) 9.2 Gran % (42.2 - 75.2 %) 64.9 Lymphocytes % (20.5 - 51.1 %) 23.3 Monocytes % (1.7 - 9.3 %) 9.1 Eosinophils % (0 - 5 %) 2.3 Basophils % (0.0 - 2.0 %) 0.4 Absolute Granulocytes (1.4 - 6.5 /CUMM) 8.4 H Absolute Lymphocytes (1.2 - 3.4 /CUMM) 3.0 Absolute Monocytes (0.10 - 0.60 /CUMM) 1.2 H Absolute Eosinophils (0.0 - 0.7 /CUMM) 0.3 Absolute Basophils (0.0 - 0.2 /CUMM) 0 PUBS MCHC (33.0 - 37.0 G/DL) 33.3 Toxicology Urine Opiates Screen (>2000 NG/ML) > 4000.00 H Methadone Screen (>300 NG/ML) 51 Barbiturate Screen (>200 NG/ML) < 60 Ur Phencyclidine Scrn (>25 NG/ML) < 6.00 Amphetamines Screen (>1000 NG/ML) < 100 U Benzodiazepines Scrn (>200 NG/ML) 227 H Urine Cocaine Screen (>300 NG/ML) 98 Urine Cannabis Screen (>50 NG/ML) 12.80 06/01 1418 Chemistry Sodium (137 - 145 mmol/L) 136 L Potassium (3.5 - 5.1 mmol/L) 4.1 Chloride (98 - 107 mmol/L) 94 L Carbon Dioxide (22 - 30 mmol/L) 33 H Anion Gap (5 - 16) 9 BUN (7 - 17 mg/dL) 11 Creatinine (0.5 - 1.0 mg/dL) 0.6 Estimated GFR (>60 ml/min) > 60 BUN/Creatinine Ratio (7 - 25 %) 18.3 Glucose (65 - 99 mg/dL) 124 H Calcium (8.4 - 10.2 mg/dL) 8.8 Total Bilirubin (0.2 - 1.3 mg/dL) 0.5 AST (14 - 36 U/L) 32 ALT (9 - 52 U/L) 20 Alkaline Phosphatase (<127 U/L) 76 Total Protein (6.3 - 8.2 g/dL) 6.8 Albumin (3.5 - 5.0 g/dL) 3.8 Globulin (1.9 - 4.2 gm/dL) 3.0 Albumin/Globulin Ratio (1.1 - 2.2 %) 1.3 Vitamin B12 (239 - 931 pg/mL) 725 Folate (2.76 - 20.0 ng/mL) 17.2 TSH (0.270 - 4.200 uIU/mL) 0.333 Free T4 (0.79 - 2.35 ng/dL) 1.15 Thyroxine (T4) (4.5 - 10.9 ug/dL) 9.7 Total Beta HCG (NEGATIVE) NEGATIVE Hematology CBC w Diff NO MAN DIFF REQ WBC (4.8 - 10.8 /CUMM) 15.4 H RBC (4.20 - 5.40 /CUMM) 4.33 Hgb (12.0 - 16.0 G/DL) 12.3 Hct (37 - 47 %) 37.0 MCV (81.0 - 99.0 FL) 85.4 MCH (27.0 - 31.0 PG) 28.4 RDW (11.5 - 14.5 %) 15.4 H Plt Count (130 - 400 /CUMM) 283 MPV (7.4 - 10.4 FL) 8.1 Gran % (42.2 - 75.2 %) 86.6 H Lymphocytes % (20.5 - 51.1 %) 6.4 L Monocytes % (1.7 - 9.3 %) 7.0 Eosinophils % (0 - 5 %) 0 Basophils % (0.0 - 2.0 %) 0 L Absolute Granulocytes (1.4 - 6.5 /CUMM) 13.4 H Absolute Lymphocytes (1.2 - 3.4 /CUMM) 1.0 L Absolute Monocytes (0.10 - 0.60 /CUMM) 1.1 H Absolute Eosinophils (0.0 - 0.7 /CUMM) 0 Absolute Basophils (0.0 - 0.2 /CUMM) 0 PUBS MCHC (33.0 - 37.0 G/DL) 33.2 Toxicology Serum Alcohol (<10 MG/DL) < 10.0 MSE Appears as stated age. Cooperative behavior, good, appropriate eye contact. Nl speech rate and prosody. No psychomotor retardation or agitation. Mood fine Affect irritable, depressed, constricted, appropriate, non-liable. Linear and goal directed thought process. Denies SI or HI. Does not appear to be responding to internal stimuli. Denies AVHs, paranoia, or delusions. I/J: limited A/P: Pt with unspecified anxiety and PSD now with improved mood. - D/c sertraline at pts request - Otherwise continue methadone taper - Encourage engagement around substance use
--- NOTE | 2016-09-23 14:53 | History & Physical ---
General Information and HPI MD Statement: I have seen and personally examined LIN CERRATO and documented this H&P. The patient is a 21 year old F who presented with a patient stated chief complaint of overdosed on heroin. Source of Information: patient Exam Limitations: no limitations History of Present Illness: 21-year-old female with past medical history significant for chronic opiate use, chronic heroine use and opiate-induced constipation, questionable eating disorder and chronic anemia who is admitted to Inpatient Psychiatry after she had heroine overdose. Patient reportedly had used one back of heroine and her mother found her unresponsive on the floor. Patient denied any suicide attempt on admission. Currently she is mostly concerned about her constipation. She is complaining of some abdominal pain. Her abdominal x-rays consistent with stool. She denies any nausea and vomiting currently but has been prescribed Zofran in the past. She had taken medication for gas. Allergies/Medications Allergies: Coded Allergies: simethicone (Intermediate, RASH 09/21/16) nut - unspecified (Mild, MOUTH ITCHES 09/21/16) apple (UNKNOWN 09/22/16) lactose (UNKNOWN 09/21/16) Uncoded Allergies: BANANAS (UNKNOWN 09/22/16) CHERRIES, (UNKNOWN 09/22/16) Home Med list Alprazolam (Xanax) 1 MG TABLET 1 TAB PO BIDP PRN ANXIETY (Reported) Buprenorphine HCl/Naloxone HCl (Suboxone 8 MG-2 MG Sl Film) 8 MG-2 MG FILM 1 STR SL DAILY UNKNOWN (Reported) Doxepin HCl 50 MG CAPSULE 2 CAP PO QPM SLEEP (Reported) Gabapentin (Neurontin) 300 MG CAPSULE 1 CAP PO TID PRN pain Past History Travel History Traveled to [place] past 21 day No Medical History Blood Transfusion Hx: No Neurological: restless leg syndrome EENT: NONE Cardiovascular: NONE Respiratory: NONE Gastrointestinal: NONE Hepatic: NONE Renal: nephrolithiasis (in 8th grade--first opioid rx) Musculoskeletal: NONE Psychiatric: anxiety, IV drug abuse (using I.V. heroin for 4 years), opioid dependence, substance abuse (crack/Marijuana/benzos/alcohol), ?anorexia spectrum vs. 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 parent Services at Home: None Primary Language: Prydeinig Smoking Status: Light Tobacco Smoker ETOH Use: denies use Illicit Drug Use: heroin Living Will? no Power of Image Consultant/HCP? no Functional Ability ADLs Independent: dressing, eating, toileting, bathing. Ambulation: independent IADLs Independent: shopping, housework, finances, food prep, telephone, transportation , medication admin. 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 EENTM: Reports: see HPI. Cardiovascular: Reports: see HPI. Respiratory: Reports: see HPI. GI: Reports: see HPI. Musculoskeletal: Reports: see HPI. Skin: Reports: see HPI. Neurological/Psychological: Reports: see HPI. Exam & Diagnostic Data Last 24 Hrs of Vital Signs/I&O Vital Signs Date Time Temp Pulse Resp B/P B/P Pulse O2 O2 Flow FiO2 Mean Ox Delivery Rate 09/23 1407 96.8 86 16 106/52 06/03 1220 86 106/52 /02 2315 92 16 98/56 06/ 2310 92 16 98/56 06/02 1954 96.8 72 101/57 /02 1634 97 101/61 Intake & Output 09/23 1600 09/23 0800 09/23 0000 Intake Total Output Total Balance Patient 89 lb 15.99 oz Weight Physical Exam General Appearance Alert, Oriented X3, Cooperative, No Acute Distress Skin No Rashes HEENT PERRLA Neck Supple Cardiovascular Regular Rate, Normal S1, Normal S2 Lungs Clear to Auscultation Abdomen Normal Bowel Sounds, Soft, tender in lower abd Neurological Cranial Nerves II through XII: intact Extremities No Edema Last 24 Hrs of Labs/Leobardo: Laboratory Tests 09/23/16 0613: Triglycerides 57, Cholesterol 109, LDL Cholesterol, Calc 63 L, HDL Cholesterol 35 L, Cholesterol/HDL Ratio 3, CBC w Diff NO MAN DIFF REQ, RBC 3.39 L, MCV 85.7, MCH 28.5, RDW 15.7 H, MPV 9.2, Gran % 64.9, Lymphocytes % 23.3, Monocytes % 9.1, Eosinophils % 2.3, Basophils % 0.4, Absolute Granulocytes 8.4 H, Absolute Lymphocytes 3.0, Absolute Monocytes 1.2 H, Absolute Eosinophils 0.3, Absolute Basophils 0, PUBS MCHC 33.3 Assessment/Plan Assessment: 21-year-old female with past medical history as stated above who is admitted with heroine overdose, history of chronic opiate use/dependence as well as opiate-induced constipation I will leave the management of heroine overdose to psychiatry. I see that patient has been started on methadone. I would add an aggressive bowel regimen for patient's constipation. She has anemia which is likely secondary to chronic anemia. Patient denies any active bleeding currently. This can be worked up as an outpatient. There is also question if she has any eating disorder. As Ranked By This Provider Problem List: 1. Abdominal pain 2. Opiate dependence 3. Heroin abuse 4. Constipation due to opioid therapy Miscellaneous Miscellaneous Documentation Attending Case Discussed With: Agnes Vazquez M.D. Primary Care Physician: FLORENTINO MCKEON,ZENA Gong Patient sees these Specialists none Level of Patient Care: RIMA Lopez MD Review Statement Attending Statement Attending MD Statement: examined this patient, reviewed EMR data (avail)
[2016-09-23 16:14] VITALS: BP 95/51
--- NOTE | 2016-09-23 18:04 | NUR ---
PT IS CALM, COOPERATIVE WITH STAFF AND PEERS, AND COMPLIANT WITH UNIT RULES. OFTEN IN [place]IEU, SLIGHTLY WITHDRAWN AT TIMES, THOUGH INTERACTING WELL WITH OTHERS. MOOD IS STABLE, AFFECT APPEARS EUTHYMIC TO FULL RANGE, COMMUNICATION IS ORGANIZED AND APPEARS NORMAL IN ALL RESPECTS, AND APPETITE IS NORMAL. PT DENIES SI AT THIS TIME.
[2016-09-23 19:40] VITALS: BP 90/56
[2016-09-24] VITALS (7 sets, daily range): BP systolic 80–110; BP diastolic 38–63
--- NOTE | 2016-09-24 02:41 | NUR ---
DR. MANLEY CALLED DUE TO PATIENT LOW BLOOD PRESSURE; PER DR. MANLEY PATIENT POSITION WAS TO BE ADJUSTED TO [place], GIVE FLUIDS, WAIT 30 MINUTES AN RECHECK; HOWEVER WHEN STAFF ATTEMPTED TO CARRY OUT THESE ORDERS, THE PATIENT CAME ANGRY, JUMPING OUT OF BED AND WALKING TO [facility]; HER GAIT WAS EVEN AND STEADY; SHE THEN BEGAN YELLING PROFANITIES AT THE STAFF ABOUT BEING WOKEN UP; STAFF ATTEMPTED REDIRECTION; SHE AGREED TO GO BACK TO BED BUT REFUSED TO DRINK ANY WATER DESPITE STAFF EDUCATION ABOUT HER BLOOD PRESSURE; SHE PRESENTED ALERT AND ORIENTED X3 WITH NO SIGNS OF DIZZINESS OR UNSTEADY GAIT; BLOOD PRESSURE WILL BE RECHECKED IN 30 MINUTES.
--- NOTE | 2016-09-24 04:38 | NUR ---
DR. MANLEY NOTIFIED OF RECENT BLOOD PRESSURE OF 80/40; ALL BLOOD PRESSURES STARTING AT MIDNIGHT HAVE BEEN MANUAL; PATIENT REMAINS ASYMPTOMATIC; PER PATIENT SHOULD EITHER DRINK FLUIDS OR PREFERABLY HAVE AN IV LINE PLACED AND IV FLUIDS HUNG; STAFF WILL ATTEMPT TO CONVINCE PATIENT TO ACCEPT INTERVENTION.
--- NOTE | 2016-09-24 05:21 | NUR ---
BLOOD PRESSURE CURRENTLY 82/46; PATIENT IRRITABLE, REFUSING TO DRINK ANY FLUIDS, INCLUDING JUICE; SHE REFUSED SALTINE CRACKERS; SHE ALSO REFUSING AN IV LINE AND IV FLUIDS; NURSING SUPEVISOR WAS NOTIFIED AND WILL COME DOWN TO SPEAK WITH PATIENT, WHO WAS EDUCATED ON THE CRITICAL RISKS TO HER HEALTH IF HER BLOOD PRESSURE REMAINS TOO LOW; THE PATIENT ACKNOWLEDGED STAFF CONCERNS, BUT CONTINUES TO REFUSE INTERVENTIONS, STATING "I'M FINE, I'M NOT GOING TO , I DON'T LIKE WATER."
--- NOTE | 2016-09-24 05:56 | NUR ---
PATIENT FINALLY AGREED TO DRINK SOME APPLE JUICE AFTER NURSING CLINICAL DATA ANALYST CAME TO UNIT AND SPOKE WITH HER, PATIENT STATED "I'LL DRINK SOME APPLE JUICE IF YOU'LL GET OUT OF MY FING ROOM!"; PATIENT GIVEN CUP OF APPROXIMATELY 7-8 OZ APPLE JUICE; BP WILL BE RECHECKED; PATIENT CONTINUALLY INSISTING THAT WE TAKE HER BP TWICE IN A ROW ON THE SAME ARM AND USE THE SECOND VALUE; PATIENT REPEATEDLY EDUCATED THAT TAKING A BLOOD PRESSURE TOO MANY TIMES ON AN ARM IS NOT ONLY HARMFUL TO HER CIRCULATION BUT CAN ALSO PRODUCE FALSE POSITIVE RESULTS; PATIENT REFUSED TO CONSIDER THIS LOGIC.
--- NOTE | 2016-09-24 10:43 | CP SOUTH PROGRESS NOTE PSYCH ---
Psych (Inpt) Progress Note Progress Note Include the following elements, when applicable: Involvement in the active treatment of the patient with behavioral observations of the patient and the patient's response to the treatment. Review of the ongoing treatment process in the context of the treatment plan. Indication of how multi-disciplinary staff members are carrying out the treatment plan. Plans for future interventions and recommendations for revision of the treatment plan. Liaison with other physicians/providers. Progress Note: Pt ntoes that feeling "fine." Had visit with twin brother that went well yesterday. Will visit again today. Parents may visit as well. Denies SI or HI. Denies AVHs. Current Medications Sig/Nathalie Start time Last Medication Dose Route Stop Time Status Admin Bisacodyl 10 MG DAILY PRN 09/23 1500 AC PA Clonidine 0.1 MG Q6P PRN 09/21 2200 DC 09/23 PO 1407 Doxepin HCl 50 MG 09/23 2200 AC 09/23 PO 2125 Doxepin HCl 50 MG AT BEDTIME NEED.. 09/23 1230 AC PO Gabapentin 400 MG 0800,1400,0 09/22 1400 AC 09/23 PO 2125 Gabapentin 400 MG Q4H PRN 09/22 1115 AC 09/22 PO 2315 Ibuprofen 600 MG Q4P PRN 09/21 2200 AC 09/21 PO 2309 Lactulose 20 GM DAILY PRN 09/23 1500 AC 09/23 PO 2126 Magnesium Hydroxide 30 ML Q8H PRN 09/22 1115 AC PO Melatonin 5 MG AT BEDTIME NEED.. 09/22 2330 AC 09/22 PO 2315 Methadone HCl 5 MG 1200 09/25 1200 AC PO 09/25 1201 Methadone HCl 5 MG 0800,09/24 0800 AC PO 09/24 2000 Methadone HCl 10 MG 0800,09/23 0800 DC 09/23 PO 09/23 Ondansetron HCl 4 MG Q6P PRN 09/21 2200 AC PO Senna/Docusate Sodium 1 TAB BID 09/23 1453 AC 09/23 PO 2126 Sertraline HCl 25 MG 1000 09/23 1000 DC PO Laboratory Tests 09/23 09/21 0613 1712 Chemistry Sodium (137 - 145 mmol/L) 137 Triglycerides (<150 mg/dL) 57 Cholesterol (<200 MG/DL) 109 LDL Cholesterol, Calc (65 - 129 mg/dL) 63 L HDL Cholesterol (40 - 60 mg/dL) 35 L Cholesterol/HDL Ratio (0.00 - 4.23 %) 3 Hematology CBC w Diff NO MAN DIFF REQ WBC (4.8 - 10.8 /CUMM) 12.9 H RBC (4.20 - 5.40 /CUMM) 3.39 L Hgb (12.0 - 16.0 G/DL) 9.7 L Hct (37 - 47 %) 29.0 L MCV (81.0 - 99.0 FL) 85.7 MCH (27.0 - 31.0 PG) 28.5 RDW (11.5 - 14.5 %) 15.7 H Plt Count (130 - 400 /CUMM) 261 MPV (7.4 - 10.4 FL) 9.2 Gran % (42.2 - 75.2 %) 64.9 Lymphocytes % (20.5 - 51.1 %) 23.3 Monocytes % (1.7 - 9.3 %) 9.1 Eosinophils % (0 - 5 %) 2.3 Basophils % (0.0 - 2.0 %) 0.4 Absolute Granulocytes (1.4 - 6.5 /CUMM) 8.4 H Absolute Lymphocytes (1.2 - 3.4 /CUMM) 3.0 Absolute Monocytes (0.10 - 0.60 /CUMM) 1.2 H Absolute Eosinophils (0.0 - 0.7 /CUMM) 0.3 Absolute Basophils (0.0 - 0.2 /CUMM) 0 PUBS MCHC (33.0 - 37.0 G/DL) 33.3 Toxicology Urine Opiates Screen (>2000 NG/ML) > 4000.00 H Methadone Screen (>300 NG/ML) 51 Barbiturate Screen (>200 NG/ML) < 60 Ur Phencyclidine Scrn (>25 NG/ML) < 6.00 Amphetamines Screen (>1000 NG/ML) < 100 U Benzodiazepines Scrn (>200 NG/ML) 227 H Urine Cocaine Screen (>300 NG/ML) 98 Urine Cannabis Screen (>50 NG/ML) 12.80 06/01 1418 Chemistry Sodium (137 - 145 mmol/L) 136 L Potassium (3.5 - 5.1 mmol/L) 4.1 Chloride (98 - 107 mmol/L) 94 L Carbon Dioxide (22 - 30 mmol/L) 33 H Anion Gap (5 - 16) 9 BUN (7 - 17 mg/dL) 11 Creatinine (0.5 - 1.0 mg/dL) 0.6 Estimated GFR (>60 ml/min) > 60 BUN/Creatinine Ratio (7 - 25 %) 18.3 Glucose (65 - 99 mg/dL) 124 H Calcium (8.4 - 10.2 mg/dL) 8.8 Total Bilirubin (0.2 - 1.3 mg/dL) 0.5 AST (14 - 36 U/L) 32 ALT (9 - 52 U/L) 20 Alkaline Phosphatase (<127 U/L) 76 Total Protein (6.3 - 8.2 g/dL) 6.8 Albumin (3.5 - 5.0 g/dL) 3.8 Globulin (1.9 - 4.2 gm/dL) 3.0 Albumin/Globulin Ratio (1.1 - 2.2 %) 1.3 Vitamin B12 (239 - 931 pg/mL) 725 Folate (2.76 - 20.0 ng/mL) 17.2 TSH (0.270 - 4.200 uIU/mL) 0.333 Free T4 (0.79 - 2.35 ng/dL) 1.15 Thyroxine (T4) (4.5 - 10.9 ug/dL) 9.7 Total Beta HCG (NEGATIVE) NEGATIVE Hematology CBC w Diff NO MAN DIFF REQ WBC (4.8 - 10.8 /CUMM) 15.4 H RBC (4.20 - 5.40 /CUMM) 4.33 Hgb (12.0 - 16.0 G/DL) 12.3 Hct (37 - 47 %) 37.0 MCV (81.0 - 99.0 FL) 85.4 MCH (27.0 - 31.0 PG) 28.4 RDW (11.5 - 14.5 %) 15.4 H Plt Count (130 - 400 /CUMM) 283 MPV (7.4 - 10.4 FL) 8.1 Gran % (42.2 - 75.2 %) 86.6 H Lymphocytes % (20.5 - 51.1 %) 6.4 L Monocytes % (1.7 - 9.3 %) 7.0 Eosinophils % (0 - 5 %) 0 Basophils % (0.0 - 2.0 %) 0 L Absolute Granulocytes (1.4 - 6.5 /CUMM) 13.4 H Absolute Lymphocytes (1.2 - 3.4 /CUMM) 1.0 L Absolute Monocytes (0.10 - 0.60 /CUMM) 1.1 H Absolute Eosinophils (0.0 - 0.7 /CUMM) 0 Absolute Basophils (0.0 - 0.2 /CUMM) 0 PUBS MCHC (33.0 - 37.0 G/DL) 33.2 Toxicology Serum Alcohol (<10 MG/DL) < 10.0 Vital Signs Date Time Temp Pulse Resp B/P B/P Pulse O2 O2 Flow FiO2 Mean Ox Delivery Rate 09/24 0521 16 82/46 06/04 0421 80 18 80/40 06/04 0225 80 18 82/38 06/04 0208 80 18 88/38 06/ 1940 98.7 91 90/56 06/03 1614 75 95/51 06/03 1407 96.8 86 16 106/52 06/03 1220 86 106/52 MSE Appears as stated age. Cooperative behavior, good, appropriate eye contact. Nl speech rate and prosody. No psychomotor retardation or agitation. Mood fine Affect irritable, depressed, constricted, appropriate, non-liable. Linear and goal directed thought process. Denies SI or HI. Does not appear to be responding to internal stimuli. Denies AVHs, paranoia, or delusions. I/J: limited A/P: Pt with unspecified anxiety and PSD now with improved mood. - D/c sertraline at pts request - D/c clonidine as hypotensive intermittently, pt is not symptomatic, likely 2/2 poor PO and low wieght, monitoring closely and encouraging fluids - Otherwise continue methadone taper - Encourage engagement around substance use
--- NOTE | 2016-09-24 12:23 | NUR ---
Patient is A&O X 3, was in her room on bed rest until 1200 noon refused all the effort from the staff to wake her up for vital sign, breakfast and group therapies/activities. Patient interacts with other peers and staff members when present in the community, makes her needs known to staff, vital sign is stable and within the acceptable range, appears very stable, no acute distress, mood and affect are stable and apathetic, denies thought of self-harm and to someone else.
--- NOTE | 2016-09-24 13:58 | Event Note ---
Event Note Event Note: Late entry for event overnight on September 23 to . I was informed about patient's low blood pressure, although patient was asymptomatic. This is probably medication induced methadone, clonidine. I asked them encourage PO intake of fluids and recheck BP. Her BP remained low around 4 AM (80/40's). Please note patient has a BMI of 15 and reports always having a low BP. She was very irritated with the number of times RN was checking her BP. She was not ready to drink fluids, but wanted to left alone and let her sleep. Around 5 AM, BP was 82/46, if agreeable to the patient, I asked them to start an IV line and give her fluids as patient refused to take PO. Patient continues to be asymptomatic.
--- NOTE | 2016-09-24 17:38 | NUR ---
PT IS COOEPRATIVE WITH STAFF AND PEERS, AND COMPLIANT WITH UNIT RULES. AGITATED AT TIMES, THOUGH THIS SEEMS TO QUICKLY PASS. OFTEN IN [place]IEU, INTERACTING WELL WITH OTHERS. MOOD IS STABLE, AFFECTS APPEARS EUTHYMIC TO FULL RANGE, COMMUNICATION IS ORGANIZED AND APPEARS NORMAL IN ALL RESPECTS, AND APPETITE IS NORMAL. PT DENIES SI AT THIS TIME.
--- NOTE | 2016-09-25 11:40 | SOCIAL WORKER PROG NOTE PSYCH ---
Social Work Progress Note Progress Note MIRTHA called [facility] and [facility] to inquired about treatment services at request of the pt. Sw met with pt at 11am. She expressed interest in pursuing treatment at either [facility] or [facility] and requested that medical records are sent to these facilities. Sw informed pt that [facility] currently has a wait list of approximately 3 weeks. [facility] would be able to admit the pt today pending receipt of records from . Cost would be $9618 for a minimum stay of 21 days as pt would be self pay. Pt stated that she would speak with her parents about this cost and requested that she be placed on the wait list for [facility]. Pt was informed by nursing staff that her mother would not be permitted to visit her due to behavior last night. Pt became upset and tearful. Pt ultimately able to continue the discussion regarding discharge. MIRTHA called [facility] regarding the wait list and was informed that upon receipt of medical records, pt could call and provide a phone number where she could be reached when a bed is available. MIRTHA reviewed with Dr. Brown and her father and mother will be contacted to schedule a family meeting today. (Meeting is scheduled for 3pm). MIRTHA received two voicemails from pt's father (Johan Fernandez, 12:24pm and 12: 28pm) requesting that medical records are sent to [facility] and further stating that she would be able to enter their program tomorrow morning. SW spoke with pt regarding this who was in agreement and requested that records are sent as well. A KALIA was signed by the pt.
[2016-09-25 12:07] VITALS: BP 120/61
--- NOTE | 2016-09-25 13:08 | NUR ---
PT HAS BEEN ISOALTIVE AND WITHDRAWN IN ROOM ALL MORNING REFUSING STAFF ATTEMPTS TO GET UP FOR VITALS, MEALS AND GROUPS. PT IS OUT IN THE [place]IEU AT TIMES INTERACTING WELL WITH PEERS BUT REFUSING GROUPS. PT SPENDS A LOT OF TIME ON THE PHONE AND COLORING BY HERSELF. PT MOOD IS STABLE WITH A CONSTRICTED AFFECT. PT CAN BECOME IRRITABLE AT TIMES BUT GETS OVER IT QUICKLY. PT DENIES SI THOUGHTS.
--- NOTE | 2016-09-25 14:47 | NUR ---
PATIENT IS SCHEDULED FOR A FAMILY MEETING THIS AFTERNOON WITH POSSIBLE DISCHARGE FOLLOWING MEETING. MOOD IS STABLE , DENIES SI AT THIS TIME.EDUCATION MATERIAL ON DRUG ABUSE AND SI GIVEN. PATIENT AWARE OF MEDICATION ADMINISTRTIN AND FOLLOW UP PLAN
--- NOTE | 2016-09-25 17:08 | NUR ---
DR. DIXON AWARE OF EKG RESULTS FROM TODAY, NO FURTHER ORDERS AT THIS TIME.
[2016-09-25 17:41] VITALS: BP 113/63
--- NOTE | 2016-09-25 17:51 | SOCIAL WORKER PROG NOTE PSYCH ---
Social Work Progress Note Progress Note 3:30pm: Dr. Brown and this SW met with patient and her mother and father. Parents expressed concerns about patient's use, sx as well as weight loss. Discussion reviewed discharge plans to which pt and family identified interest in [facility] as the discharge plan. Pt's father stated that he has been in contact regarding payment. Pt also expressed interest in being placed on [facility]'s waitlist "as a back up plan." SW reported that [email or web address], [facility] and [facility] were contacted and confirmed receipt of medical records. All facilities stated that they would review the records and were provided with this SW's direct office number. Pt's anticipated discharge date is identified as 09/26/16. Pt and Dr. Brown discussed medication concerns. Finalized d/c plans are pending return call by treatment programs discussed during this meeting.
--- NOTE | 2016-09-25 18:09 | SOCIAL WORKER PROG NOTE PSYCH ---
Social Work Progress Note Progress Note SW returned call from Rashad (admissions/intake) at [facility]. He stated that he received the medical records and has provided it to the clinicial team for review. He will contact this SW tomorrow regarding any progress/decisions made.
--- NOTE | 2016-09-25 18:39 | CP SOUTH PROGRESS NOTE PSYCH ---
Psych (Inpt) Progress Note Progress Note Include the following elements, when applicable: Involvement in the active treatment of the patient with behavioral observations of the patient and the patient's response to the treatment. Review of the ongoing treatment process in the context of the treatment plan. Indication of how multi-disciplinary staff members are carrying out the treatment plan. Plans for future interventions and recommendations for revision of the treatment plan. Liaison with other physicians/providers. Progress Note: PSYCHIATRIST NOTE (FAMILY MEETING), 09/25/2016: I discussed this patient's progress to date, current mental status, treatment and discharge planning with staff team today in the daily morning BARBARA and Cecelia Meneses LCSW, and I also met with patient and both her parents in a family session. The contrast between father and mother's presentation was striking; he appeared calm, cool and controlled, whereas, mother was teary or close to tears throughout most of the meeting. For her part, patient was angry, frequently getting into disagreement with father over his insistence on calling her "Pati" when she made it quite clear in the meeting that she wanted to be called "Karolina," her longtime nickname and the one she has gone by while on [facility]; this "minor" disagreement seemed somewhat larger yet difficult to understand as it appeared clear to everyone else in the room that the patient wished to be called "Karolina" and had made this desire clearly known more than once ; each time father referred to her as "Pati" she became angrier in a way which would have been hard for father to miss. Residential rehab was discussed and it agreed upon that parents would pursue referral to [facility] for at least their 21-day residential program; I repeatedly emphasized that however long patient was in residential treatment it was vital that there be a firm seamless aftercare plan, that many stays at rehab are rendered ineffective in the long- run when there fails to be intensive outpatient treatment immediately after discharge. Patient acknowledged in the family meeting that she was still experiencing significant opiate withdrawal symptoms today despite the 5mg dose of methadone this morning; I agreed to give her another 5mg this evening and then extend the last dose of the detox to tomorrow morning (also 5mg).
--- NOTE | 2016-09-25 18:49 | SOCIAL WORKER PROG NOTE PSYCH ---
Social Work Progress Note Progress Note 4:45pm: this SW spoke with Jen at [facility] in attempt to complete a concurrent review. Review could not be provided at this time. Jen and this SW will speak by phone tomorrow at 10:30am. Jen stated that this would not be considered a late submission due to today's attempt.
[2016-09-25 19:50] VITALS: BP 92/56
--- NOTE | 2016-09-25 20:22 | NUR ---
PT HAS BEEN UPSET AND ISOLATIVE /WITHDRAWN SINCE HER FAMILY MEETING. SHE IS HOPING FOR DC TOMORROW, BUT HAS NOT TALKED TO STAFF FURTHER ABOUT GOALS OR TREATMENT PLANS. THERE HAS BEEN A OBSERVABLE DECREASE IN MOTIVATION AND MOOD, BUT DENIES ANY THOUGHTS OF SI WHEN ASKED BY STAFF.
--- NOTE | 2016-09-26 04:55 | NUR ---
SLEPT WELL NO ISSUES.
--- NOTE | 2016-09-26 10:59 | SOCIAL WORKER PROG NOTE PSYCH ---
Social Work Progress Note Progress Note LIN HASSANZANO [id number] 1995 [place] HASSANSAQ[place] [id number] Pended Authorization # Client Authorization # Type of Request [id number] CONCURRENT Date of Admission/ Start of Services Requested From Submission Date 09/21/2016 09/24/2016 09/26/2016
[2016-09-26 11:53] VITALS: BP 106/64
--- NOTE | 2016-09-26 12:39 | NUR ---
PT IS PRESENT WITHIN THE COMMUNITY AND SOCIAL AND APPROPRIATE WITH PEERS AND STAFF, NO ISSUES OR COMPLAINTS REPORTED OR OBSERVED, WHEN ASKED DIRECTLY DENIES SI/HI/HALLUCINATIONS. W-10 AND PT RESOURCE GUIDE REVIEWED WITH PT AND HAS NO QUESTIONS, + UNDERSTANDING OF MEDICATION REGIMENT AND FOLLOW-UP DISCHARGE PLAN & IS MOTIVATED FOR SOBRIETY. REPORTS AN OVERALL IMPROVEMENT IN MOOD/BEHAVIOR AND MENTAL STATUS, TENTATIVE DISCHARGE FOR TODAY, AWAITING FURTHER DETAILS RE: REHAB FROM GROUP CAPTAIN. INFORMATION PACKET RE: SI AND OPITATE ADDICTION GIVEN WELL.
--- NOTE | 2016-09-26 13:26 | SOCIAL WORKER PROG NOTE PSYCH ---
Social Work Progress Note Progress Note Sw was informed by Rashad at [facility] that they will be accepting pt to their program today. He stated that he would be able to provide transportation from to [facility]. SW was also informed that the pt did not need to bring medications to [facility] as they are prescribed medications while in the program. Tw met with pt regarding discharge plans. Pt was in agreement with going to [facility], but stated that she did not want to utilize their transportation due to "I need to go home and pack." Pt will be picked up by her parents at 2pm. She did not identify any barriers that would prevent her from going to [facility] today.
[2016-09-26] MEDS ORDERED: DOXEPIN HCL25 MG PO (13:45)
[2016-09-26] MEDS ORDERED: GABAPENTIN400 M2 PO (13:45)
--- NOTE | 2016-09-26 13:49 | CP SOUTH PROGRESS NOTE PSYCH ---
Psych (Inpt) Progress Note Progress Note Include the following elements, when applicable: Involvement in the active treatment of the patient with behavioral observations of the patient and the patient's response to the treatment. Review of the ongoing treatment process in the context of the treatment plan. Indication of how multi-disciplinary staff members are carrying out the treatment plan. Plans for future interventions and recommendations for revision of the treatment plan. Liaison with other physicians/providers. Progress Note: PSYCHIATRIST NOTE (DISCHARGE), 09/26/2016: I discussed this patient's progress to date, current mental status, treatment and discharge plans with staff team today in the daily morning ITTM and met with her again myself in individual session prior to discharging her with her parents for admission to [facility] residential rehab program in [place], [place] today. Patient was rather remarkably less sullen and withdrawn (no longer sitting with head bowed forward and hair covering her face) in discussion with me today. Withdrawal symptoms have markedly improved since yesterday; I sill gave her one additional dose of methadone, 5mg, this afternoon given that she was apparently stopping home on the way to [facility], and I wanted to limit the possible increase in craving for opioids which might occur on the way (though family thought all traces of drug had been removed from the home). Patient noted more trouble sleeping on the lower dose of doxepin (50mg/night) despite general improvement in the way she was feeling; she had previously been taking 100mg HS, and I increased doxepin back up to that level. Patient continued to assert benefit from the regular doses of Neurontin and wishes to continue them. We discussed yesterday's family meeting; I was surprized that patient had nothing to say about her father insisting upon calling her "Pati," shrugging her shoulders and saying "that's just the way he is..." At the time of discharge, patient was brighter in affect, euthymic, future-oriented, looking forward to going to [facility] today, showing no evidence of suicidal or homicidal ideation, plans, intent or impulses. (for details of medications prescribed at the time of discharge, see the discharge summary from this admission in the electronic medical record)
--- NOTE | 2016-09-26 13:49 | DISCHARGE SUMMARY REPORT-PSYCH ---
Visit Information Visit Dates/Diagnosis' Admission Date: 09/21/16 Discharge Date: 09/26/16 Reason for Admission: "I took some heroin and my mom found me." Psy Discharge Primary Diag: Mood Disorder Psy Discharge Secondary Diag: Opioid Dependence, R/O Unspecified Eating Disorder (restrictive) Hospital Course Significant Lab Findings: glucose = 124; chloride = 94; carbon dioxide = 33; HDL = 35, LDL = 63; WBC = 14.5, 15.4 and 12.9 (without a signicant "left shift"); PATIENCE = less than 10.0; urine for drugs of abuse--positive for benzos. (227ng/ml) and morphine (greater than 4,000ng/ml); for complete listing of all normal range laboratory data for this admission, see the electronic medical record Course Complications: none Consultations: patient was seen for an admission medical H&P by Neha Vazquez M.D., and was followed medically during this admission by the hospitalist staff[facility] attending physicians Allergies: Coded Allergies: simethicone (Intermediate, RASH 09/21/16) nut - unspecified (Mild, MOUTH ITCHES 09/21/16) apple (UNKNOWN 09/22/16) lactose (UNKNOWN 09/21/16) Uncoded Allergies: BANANAS (UNKNOWN 09/22/16) CHERRIES, (UNKNOWN 09/22/16) Hospital Course/TX Response: (see also, all initial/admission assessments, daily M.D./FACILITIES MAINTENANCE SUPERVISOR and QUARANTINE OFFICER progress notes from this admission which are in the electronic medical record) Patient has an almost remarkably heavy and extensive history of heroin addiction for someone so young (using regularly for past 4 years, starting a 24-bdzed-go- age, claiming no more than "30-days" of abstinence from heroin in all that time) and has apparently been carrying on with this and other polysubstance abuse without the knowledge of her parents with whom she lives (apparently, they only became aware "there is a problem" in 2015). First off, patient requires opioid detox and most likely referral to (long-term) residential rehab. There and subsequently, the issues of depressive/anxiety spectrum mood disorder(s) can be addressed, but not really until the very serious substance use disorder is under control and not exercising a significant , if not overwhelming, influence on her behavior and ideation. One particularly serious aspect of treating this patient would appear to be her longstanding history of lying to those around her (parents, treaters, employers, others), using with respect to some aspect of her extremely serious addiction problems. Patient was discharged accompanied by her parents for admission to [facility] residential rehab program in [facility], on day of discharge from hospital. Patient was rather remarkably less sullen and withdrawn (no longer sitting with head bowed forward and hair covering her face) in discussion with me today. Withdrawal symptoms have markedly improved since yesterday; I sill gave her one additional dose of methadone, 5mg, this afternoon given that she was apparently stopping home on the way to [place], and I wanted to limit the possible increase in craving for opioids which might occur on the way (though family thought all traces of drug had been removed from the home). Patient noted more trouble sleeping on the lower dose of doxepin (50mg/night) despite general improvement in the way she was feeling; she had previously been taking 100mg HS, and I increased doxepin back up to that level. Patient continued to assert benefit from the regular doses of Neurontin and wishes to continue them. We discussed yesterday's family meeting; I was surprized that patient had nothing to say about her father insisting upon calling her "Pati," shrugging her shoulders and saying "that's just the way he is..." At the time of discharge, patient was brighter in affect, euthymic, future-oriented, looking forward to going to [place] today, showing no evidence of suicidal or homicidal ideation , plans, intent or impulses. Discharge HBIPS - Tobacco Use Treatment Offered Post DC Medications Offered: Not Applicable Post DC Tobacco Treatment Plan: Not Applicable - EtOH/Drug Use D/O Treatment Offered Post DC Medications Offered: NA-No EtOH/Drug Use D/O Post DC EtOH/SubAbuse TX Plan: NA-No EtOH/Drug Use D/O Metabolic Screening - Screen if on a Neuroleptic Medication - Metabolic screening should include: - Blood Pressure, BMI, Glucose or Hgb A1c, & a - Lipid profile from within the past 365 days. Metabolic Screening ([x]) Not Applicable, patient not on a neuroleptic. OR () Patient on a neuroleptic(s) . Enter below results for Glucose or Hemoglobin A1C, and lipid panel if obtained during the last 365 days. BMI: Blood Pressure: 106/64 Laboratory Results (If applicable): Discharge Instructions General Discharge Information Discharge Medications: At the time of discharge on 09/26/2016 patient was prescribed: doxepin, 100mg nightly at HS (100mg/night); for sleep/mood Neurontin, 400mg 3x/day (1,200mg daily); for discomfort/jitteriness/anxiety/ sleep (the above medications will be prescribed for patient by [facility] rehab medical staff) Multiple Neuroleptics: ([x]) Not Applicable OR Document below three failed attempts at monotherapy, or a plan to taper to monotherapy, or augmentation of Clozapine. () Patient's Diet: heart healthy Patient's Activity: without restrictions DC Disposition: to residential rehab at [facility] in [place], [place]. Recommendations: I would recommend ongoing evaluation of possible unspecified eating disorder and possible referral to the Eating Disorders unit at [facility] once patient is in at least early remission/abstinence from substance abuse (opioids in particular). Referred To: Patient was referred directly to residential rehab at [facility] in [place], [place]. Copies To: HEMANT SINGH DO
== END 2016-09-26 14:23 | DRG 773 ==
LOC: ERH 13:48 → ERHI 20:21 → CP SOUTH 20:21 → ENTRNSPT 21:14 → CMPTRNSPT 22:02 → CP SOUTH 22:16
PROVIDERS: Physician Assistant; ADMIT Psychiatry & Neurology Addiction Medicine
DX: F11.24 Opioid dependence with opioid-induced mood disorder (principal); F19.94 Other psychoactive substance use, unspecified with psychoactive substance-induced mood disorder
CPT/HCPCS: 36415; 74000; 80307; 93005; 93010; G0480; J3101